=== PATIENT | male | born 1940 | race Caucasian/White ===

== ENCOUNTER 2016-12-05 11:54 | Emergency (ER) | payer OTHER ==
[2016-12-05 12:01] VITALS: BP 145/62; BMI 29.1
--- NOTE | 2016-12-05 12:58 | DR.GENAD ---
HPI - PCP Primary Care Physician: NFD - Complaint/Symptoms Chief Complaint:: PATIENT STATED THAT HAS BEEN RED AND DRAINING A COUPLE OF DAYS AGO AND HAS STOPPED AND NOW HIS PRIVATES ARE REALLY SWOLLEN 4-5 DAYS. - Nurses notes reviewed Nurses Notes Review: Yes - Source History Provided: Patient - Mode of Arrival Mode of Arrival: Ambulatory - Timing Onset of Chief Complaint: 11/30/16 PMH - PMH Past Medical History: Yes Past Medical History: Dyslipidemia, Hypertension, [place] Past Medical History Comment: COLON CA Past Surgical History: Yes Surgical History: Abdominal Surgery, Angioplasty/Stents, CABG/Valve Surgery Past Surgical History Comment: 3 FEET OF COLON REMOVED AND SMALL INTESTIONS REMOVED (30 IN. ) - Family History History of Family Medical Conditions: No - Social History Does patient currently use any type of tobacco product: No Have you used tobacco products in the last 12 months: No Type of Tobacco Use: None Does any household member use tobacco: No Alcohol Use: None Do you use any recreational Drugs:: No Lives With: Family Lives Where: Home - infectious screening In the last 2 months have you had wt loss of >10#?: NO Have you had fever, night sweats or hemotysis?: No Have you traveled outside the country in the last 6 months?: No Isolation: Standard PE - Vital Signs Vitals: Temperature 98.7 F Pulse Rate 57 Respiratory Rate 18 Blood Pressure 145/62 O2 Sat by Pulse Oximetry 100 ROR - Labs Reviewed Result Diagrams: 12/05/16 13:29 12/05/16 13:29 Laboratory: WBC 3.9 X10^3/uL (3.6-10.0) 12/05/16 13:29 RBC 3.96 X10^6/uL (4.7-6.0) L 12/05/16 13:29 Hgb 11.0 g/dL (13.5-18.0) L 12/05/16 13:29 Hct 33.0 % (42.0-54.0) L 12/05/16 13:29 MCV 83.3 fL (80.0-100.0) 12/05/16 13:29 MCH 27.8 pg (27.0-34.0) 12/05/16 13:29 MCHC 33.4 g/dL (33.0-35.0) 12/05/16 13:29 RDW 15.6 % (11.6-16.5) 12/05/16 13:29 Plt Count 83 X10^3/uL (150.0-450.0) L 12/05/16 13:29 MPV 8.2 fL (7.4-11.0) 12/05/16 13:29 Neut % 60.1 % (42.0-75.0) 12/05/16 13:29 Lymph % 23.4 % (21.0-51.0) 12/05/16 13:29 [place] % 12.7 % (0.0-13.0) 12/05/16 13:29 Eos % 3.0 % (0.9-2.9) H 12/05/16 13:29 Baso % 0.8 % (0.2-1.0) 12/05/16 13:29 Neut # 2.3 x10^3/uL (2.2-4.8) 12/05/16 13:29 Lymph # 0.9 X10^3/uL (1.3-2.9) L 12/05/16 13:29 [place] # 0.5 x10^3/uL (0.3-0.8) 12/05/16 13:29 Eos # 0.1 x10^3/uL (0.0-0.2) 12/05/16 13:29 Baso # 0.0 X10^3/uL (0.0-0.1) 12/05/16 13:29 Absolute Nucleated RBC 0.1 /100WBC 12/05/16 13:29 Sodium 141 mmol/L (136-145) 12/05/16 13:29 Corrected Sodium 141 mmol/L (136-145) 12/05/16 13:29 Potassium 4.3 mmol/L (3.5-5.1) 12/05/16 13:29 Chloride 106 mmol/L (98-107) 12/05/16 13:29 Carbon Dioxide 28.7 mmol/L (21-32) 12/05/16 13:29 BUN 5 mg/dL (7-18) L 12/05/16 13:29 Creatinine 0.82 mg/dL (0.70-1.30) 12/05/16 13:29 Est GFR (MDRD) Af Amer > 60 (>60) 12/05/16 13:29 Est GFR (MDRD) Non-Af > 60 (>60) 12/05/16 13:29 Glucose 111 mg/dL (65-99) H 12/05/16 13:29 Calcium 8.0 mg/dL (8.5-10.1) L 12/05/16 13:29 Corrected Calcium 8.9 mg/dL (8.5-10.1) 12/05/16 13:29 Total Bilirubin 0.90 mg/dL (0.2-1.0) 12/05/16 13:29 AST 25 Units/L (15-37) 12/05/16 13:29 ALT 22 Units/L (12-78) 12/05/16 13:29 Alkaline Phosphatase 79 Units/L (46-116) 12/05/16 13:29 Total Protein 6.6 g/dL (6.4-8.2) 12/05/16 13:29 Albumin 2.9 g/dL (3.4-5.0) L 12/05/16 13:29 Globulin 3.7 g/dL (2.5-4.5) 12/05/16 13:29 Albumin/Globulin Ratio 0.8 Ratio (1.1-2.1) L 12/05/16 13:29 Amylase 61 Units/L (25-115) 12/05/16 13:29 Lipase 176 Units/L (73-393) 12/05/16 13:29 Specimen Type Clean catch urine 12/05/16 14:20 Urine Color Yellow (YELLOW) 12/05/16 14:20 Urine Appearance Hazy (CLEAR) 12/05/16 14:20 Urine pH 6.5 (5.0 - 8.0) 12/05/16 14:20 Ur Specific [place] 1.005 (1.000-1.030) 12/05/16 14:20 Urine Protein Negative (NEGATIVE) 12/05/16 14:20 Urine Glucose (UA) Negative (NEGATIVE) 12/05/16 14:20 Urine Ketones Negative (NEGATIVE) 12/05/16 14:20 Urine Occult Blood Negative (NEGATIVE) 12/05/16 14:20 Urine Nitrite Negative (NEGATIVE) 12/05/16 14:20 Urine Bilirubin Negative (NEGATIVE) 12/05/16 14:20 Urine Urobilinogen Normal (NORMAL) 12/05/16 14:20 Ur Leukocyte Esterase 1+ (NEGATIVE) 12/05/16 14:20 Urine RBC 0-2 /HPF (NEGATIVE) 12/05/16 14:20 Urine WBC 0-3 /HPF (NEGATIVE) 12/05/16 14:20 Ur Squamous Epith Cells Rare /HPF (NEGATIVE) 12/05/16 14:20 Urine Bacteria Trace /HPF (NEGATIVE) 12/05/16 14:20 Ur Culture Indicated? No/not indicated 12/05/16 14:20 - Diagnosis Discharge Problem: Abdominal wall pain Cellulitis Qualifiers: Site of cellulitis: trunk Site of cellulitis of trunk: abdominal wall Qualified Code(s): L03.311 - Cellulitis of abdominal wall Hydrocele Qualifiers: Hydrocele type: other Qualified Code(s): N43.2 - Other hydrocele - Discharge Plan Condition: Stable Prescriptions: Sulfamethoxazole-Trimethoprim [BACTRIM DS TAB 800/160 MG *] 1 tab PO BID #20 tab - Follow ups/Referrals Follow ups/Referrals: NFD,None [Primary Care Provider] - 3 days Layo Lee [STAFF PHYSICIAN] - 3 days - Instructions Instructions: Hydrocele, Adult, Cellulitis, Abdominal Pain, Adult, [id number] Additional Instructions: RETURN TO ED IF WORSE.
[2016-12-05 13:42] LABS: BASOPHILS % (AUTO) 0.8 % (0.2-1.0); EOSINOPHILS # (AUTO) 0.1 x10^3/uL (0.0-0.2); LYMPHOCYTES # (AUTO) 0.9 X10^3/uL (1.3-2.9); LYMPHOCYTES % (AUTO) 23.4 % (21.0-51.0); MEAN CORPUSCULAR HEMOGLOBIN 27.8 pg (27.0-34.0); MEAN CORPUSCULAR HGB CONC 33.4 g/dL (33.0-35.0); MEAN CORPUSCULAR VOLUME 83.3 fL (80.0-100.0); MEAN PLATELET VOLUME 8.2 fL (7.4-11.0); MONOCYTES # (AUTO) 0.5 x10^3/uL (0.3-0.8); MONOCYTES % (AUTO) 12.7 % (0.0-13.0); NEUTROPHILS # (AUTO) 2.3 x10^3/uL (2.2-4.8); NEUTROPHILS % (AUTO) 60.1 % (42.0-75.0); PLATELET COUNT 83 X10^3/uL (150.0-450.0); RED BLOOD COUNT 3.96 X10^6/uL (4.7-6.0); RED CELL DISTRIBUTION WIDTH 15.6 % (11.6-16.5); WHITE BLOOD COUNT 3.9 X10^3/uL (3.6-10.0)
[2016-12-05 13:50] LABS: ALANINE AMINOTRANSFERASE 22 Units/L (12-78); ALBUMIN 2.9 g/dL (3.4-5.0); ALKALINE PHOSPHATASE 79 Units/L (46-116); AMYLASE 61 Units/L (25-115); ASPARTATE AMINO TRANSFERASE 25 Units/L (15-37); BLOOD UREA NITROGEN 5 mg/dL (7-18); CARBON DIOXIDE 28.7 mmol/L (21-32); CHLORIDE 106 mmol/L (98-107); COR CA(FOR HYPOALB) 8.9 mg/dL (8.5-10.1); COR NA(FOR HYPERGLY) 141 mmol/L (136-145); CREATININE 0.82 mg/dL (0.70-1.30); GLUCOSE 111 mg/dL (65-99); LIPASE 176 Units/L (73-393); SODIUM 141 mmol/L (136-145); TOTAL PROTEIN 6.6 g/dL (6.4-8.2); eGFR BLACK RACES > 60 (>60); eGFR NON BLACK RACES > 60 (>60)
[2016-12-05 14:31] LABS: BILIRUBIN,URINE NEGATIVE (NEGATIVE); BLOOD/HEMOGLOBIN,URINE NEGATIVE (NEGATIVE); GLUCOSE, URINE NEGATIVE (NEGATIVE); KETONES,URINE NEGATIVE (NEGATIVE); LEUKOCYTE ESTERASE ,URINE 1+ (NEGATIVE); NITRITES,URINE NEGATIVE (NEGATIVE); PH,URINE 6.5 (5.0 - 8.0); PROTEIN,URINE NEGATIVE (NEGATIVE); UROBILINOGEN,URINE NORMAL (NORMAL)
[2016-12-05 14:41] LABS: APPEARANCE,URINE HAZY (CLEAR); BACTERIA,URINE TRACE /HPF (NEGATIVE); COLOR,URINE YELLOW (YELLOW); RBC,URINE 0-2 /HPF (NEGATIVE); SQUAMOUS EPITHELIAL CELL,UR RARE /HPF (NEGATIVE)
--- NOTE | 2016-12-05 14:42 | US ---
HISTORY: Right-sided testicular pain Study: Scrotal ultrasound Comparison: No priors Technique: Multiple tellez scale and Doppler images of the right and left testicles were obtained Findings: The testicles demonstrate normal echotexture. No intra parenchymal mass or infiltrative process can be identified. Normal color flow Doppler is observed. The right testicle measures 2.4 x 2.9 x 3 ce ntimeters. The left testicle measures 2.8 x 2.9 x 3.5 centimeters. The epididymides are unremarkable without mass or cystic lesion. There are bilateral hydroceles, larger on the right side. IMPRESSION: No evidence of testicular tumor or torsion. Bilateral hydroceles, larger on the right side. Reported By:
--- NOTE | 2016-12-05 14:59 | CT ---
HISTORY: Abdominal wall swelling and pain. Right testicular swelling and pain. Study: CT abdomen and pelvis without contrast Comparison: Testicular ultrasound dated December 05, 2016. Technique: Multiple axial images of the abdomen and pelvis were obtained from the lung bases to the pubic symph ysis after/ without/ both prior to and after the administration of IV contrast. Dose reduction tech niques including Automated Exposure Control (AEC) and adjustment of mA and kV were utilized. Findings: Bibasilar scarring versus atelectasis . Otherwise, the visualized portions of the lung bases are unr emarkable. Cirrhotic appearing liver with associated perihepatic ascites. Ascites is also seen track ing down to the dependent pelvis and in the bilateral inguinal canals and scrotum. No obvious suspic ious liver mass. There is recanalization of the umbilical vein. The spleen is enlarged to 16.3 cm. D ependent gallstones are seen within the gallbladder without CT evidence to suggest cholecystitis. Th e pancreas, kidneys, and adrenal glands are unremarkable in their CT appearance. No pathologic lymp hadenopathy or free air is appreciated. Patient is status post subtotal colon resection and anastom osis. Remote right lower quadrant ostomy site is seen. No obvious bowel obstruction is appreciated. Small fat containing supraumbilical ventral hernia with hernia neck of 1.4 cm. Scattered colonic div erticulum of the remaining large bowel without evidence of diverticulosis. The bladder and prostate appear normal. Degenerative changes of the spine. The osseous structures otherwise appear normal for age. IMPRESSION: 1. No CT evidence of acute abdominal/pelvic pathology. 2. Constellation of findings likely representing cirrhosis of the liver. Patient's ascites tracks in to the bilateral inguinal canals and right greater than left scrotum. 3. Other chronic findings as above. Reported By:
== END 2016-12-05 15:41 | disposition home or self-care (01) ==
LOC: ER 11:54
DX: N43.2 Other hydrocele (principal); L03.311 Cellulitis of abdominal wall; R10.84 Generalized abdominal pain
CPT/HCPCS: 36415; 74176; 76870; 80053; 81001; 82150; 83690; 85025; 99283

== ENCOUNTER 2021-09-01 11:19 | Observation (INO) ==
[2021-09-01] MEDS ORDERED: ZOFRAN INJ 4 MG VIAL IVP PRN (15:47)
[2021-09-01] MEDS: NS 1,000 ML IV 1,000 ML IV SCH (16:16)
[2021-09-01] MEDS: PEPCID 20 MG VIAL 20 MG in NS 50 ML IV 50 ML IV SCH ×2 (16:16→20:22)
[2021-09-01] MEDS: CIPRO IV 400 MG PREMIX* 400 MG/200 ML IV.SOLN. IV SCH ×2 (16:16→21:00)
[2021-09-01] MEDS: BENTYL CAP 10 MG PO SCH ×2 (16:16→20:22)
[2021-09-01] MEDS: PROTONIX INJ 40 MG VIAL IVP SCH ×2 (16:16→20:22)
[2021-09-01 16:26] VITALS: BMI 29.5
[2021-09-01 16:28] LABS: BASOPHILS % (AUTO) 0.9 % (0.2-1.0); EOSINOPHILS # (AUTO) 0.1 x10^3/uL (0.0-0.2); EOSINOPHILS % (AUTO) 2.8 % (0.9-2.9); HEMATOCRIT 31.7 % (42.0-54.0); HEMOGLOBIN 10.2 g/dL (13.5-18.0); LYMPHOCYTES # (AUTO) 0.6 X10^3/uL (1.3-2.9); LYMPHOCYTES % (AUTO) 22.9 % (21.0-51.0); MEAN CORPUSCULAR HGB CONC 32.3 g/dL (33.0-35.0); MEAN CORPUSCULAR VOLUME 71.2 fL (80.0-100.0); MEAN PLATELET VOLUME 8.4 fL (7.4-11.0); MONOCYTES # (AUTO) 0.4 x10^3/uL (0.3-0.8); MONOCYTES % (AUTO) 14.1 % (0.0-13.0); NEUTROPHILS # (AUTO) 1.6 x10^3/uL (2.2-4.8); NEUTROPHILS % (AUTO) 59.3 % (42.0-75.0); RED BLOOD COUNT 4.45 X10^6/uL (4.7-6.0); RED CELL DISTRIBUTION WIDTH 25.7 % (11.6-16.5); WHITE BLOOD COUNT 2.6 X10^3/uL (3.6-10.0)
[2021-09-01 16:37] LABS: ALANINE AMINOTRANSFERASE 36 Units/L (12-78); ALBUMIN 2.6 g/dL (3.4-5.0); ALKALINE PHOSPHATASE 127 Units/L (46-116); AMYLASE 81 Units/L (25-115); ASPARTATE AMINO TRANSFERASE 46 Units/L (15-37); BLOOD UREA NITROGEN 8 mg/dL (7-18); CARBON DIOXIDE 24.9 mmol/L (21-32); CHLORIDE 105 mmol/L (98-107); COR CA(FOR HYPOALB) 7.1 mg/dL (8.5-10.1); CREATININE 0.78 mg/dL (0.70-1.30); LIPASE 181 Units/L (73-393); MAGNESIUM 0.5 mg/dL (1.7-2.9); SODIUM 138 mmol/L (136-145); TOTAL PROTEIN 6.5 g/dL (6.4-8.2); eGFR NON BLACK RACES > 60 (>60)
[2021-09-01 16:45] LABS: CKMB % 1.1 % (<4); CREATINE KINASE MB 2.7 ng/mL (0-4.0)
[2021-09-01] MEDS ORDERED: POTASSIUM CHLORIDE LIQ 20 MEQ UDC PO PRN (16:49)
[2021-09-01] MEDS ORDERED: K-DUR TAB 20 MEQ PO PRN (16:49)
[2021-09-01] MEDS ORDERED: POTASSIUM CHL 40 MEQ/NS 0.45% 500 ML IV PRN (16:49)
[2021-09-01] MEDS ORDERED: MICRO K EXTEN CAP 10 MEQ PO PRN (16:49)
[2021-09-01] MEDS ORDERED: POTASSIUM CHL 60 MEQ/NS 0.45% 500 ML IV PRN (16:49)
[2021-09-01] MEDS ORDERED: KLOR-CON PO PRN (16:49)
[2021-09-01 16:55] LABS: ANISOCYTOSIS 2+; PLATELET MORPHOLOGY COMMENT NORMAL (NORMAL)
[2021-09-01 16:56] LABS: MICROCYTOSIS SLIGHT
[2021-09-01 20:39] LABS: CRYPTOSPORIDIUM PARVUM ANTIGEN NEGATIVE (NEGATIVE); GIARDIA LAMBLIA ANTIGEN NEGATIVE (NEGATIVE)
[2021-09-01] MEDS: MAGNESIUM SULFATE 1 GRAM/100 mL PREMIX 1 G/100 ML BAG IV PRN ×2 (22:00→23:46)
[2021-09-01 22:34] LABS: BILIRUBIN,URINE NEGATIVE (NEGATIVE); BLOOD/HEMOGLOBIN,URINE 2+ (NEGATIVE); GLUCOSE, URINE NEGATIVE (NEGATIVE); KETONES,URINE NEGATIVE (NEGATIVE); LEUKOCYTE ESTERASE ,URINE NEGATIVE (NEGATIVE); NITRITES,URINE NEGATIVE (NEGATIVE); PROTEIN,URINE 1+ (NEGATIVE); UROBILINOGEN,URINE NORMAL (NORMAL)
[2021-09-01 22:52] LABS: APPEARANCE,URINE CLEAR (CLEAR); COLOR,URINE YELLOW (YELLOW)
[2021-09-01 22:53] LABS: BACTERIA,URINE TRACE /HPF (NEGATIVE); RBC,URINE 0-2 /HPF (0-3); SQUAMOUS EPITHELIAL CELL,UR NEGATIVE /HPF (NEGATIVE)
[2021-09-02] MEDS: K-RIDER 10 MEQ/NS 100 ML 10 MEQ/100 ML BAG IV PRN ×6 (00:48→06:29)
[2021-09-02] MEDS: MAGNESIUM SULFATE 1 GRAM/100 mL PREMIX 1 G/100 ML BAG IV PRN ×6 (00:48→06:29)
[2021-09-02] MEDS: NS 1,000 ML IV 1,000 ML IV SCH ×3 (05:08→18:14)
[2021-09-02 07:00] LABS: EOSINOPHILS # (AUTO) 0.1 x10^3/uL (0.0-0.2); EOSINOPHILS % (AUTO) 4.6 % (0.9-2.9); HEMATOCRIT 26.9 % (42.0-54.0); HEMOGLOBIN 8.7 g/dL (13.5-18.0); LYMPHOCYTES # (AUTO) 0.5 X10^3/uL (1.3-2.9); LYMPHOCYTES % (AUTO) 26.5 % (21.0-51.0); MEAN CORPUSCULAR HEMOGLOBIN 23.4 pg (27.0-34.0); MEAN CORPUSCULAR HGB CONC 32.4 g/dL (33.0-35.0); MEAN CORPUSCULAR VOLUME 72.1 fL (80.0-100.0); MEAN PLATELET VOLUME 8.4 fL (7.4-11.0); MONOCYTES # (AUTO) 0.3 x10^3/uL (0.3-0.8); MONOCYTES % (AUTO) 14.7 % (0.0-13.0); NEUTROPHILS # (AUTO) 1.1 x10^3/uL (2.2-4.8); NEUTROPHILS % (AUTO) 53.2 % (42.0-75.0); RED BLOOD COUNT 3.73 X10^6/uL (4.7-6.0); RED CELL DISTRIBUTION WIDTH 25.4 % (11.6-16.5)
[2021-09-02 07:17] LABS: ALANINE AMINOTRANSFERASE 29 Units/L (12-78); ALKALINE PHOSPHATASE 103 Units/L (46-116); ASPARTATE AMINO TRANSFERASE 39 Units/L (15-37); BLOOD UREA NITROGEN 6 mg/dL (7-18); CARBON DIOXIDE 25.2 mmol/L (21-32); CHLORIDE 106 mmol/L (98-107); COR CA(FOR HYPOALB) 7.5 mg/dL (8.5-10.1); CREATININE 0.56 mg/dL (0.70-1.30); MAGNESIUM 2.1 mg/dL (1.7-2.9); SODIUM 138 mmol/L (136-145); TOTAL PROTEIN 5.2 g/dL (6.4-8.2); eGFR NON BLACK RACES > 60 (>60)
[2021-09-02 07:29] LABS: CALCIUM 5.9 mg/dL (8.5-10.1)
[2021-09-02] MEDS ORDERED: LOMOTIL PO PRN (08:12)
[2021-09-02] MEDS ORDERED: ULTRAM PO PRN (08:12)
[2021-09-02 08:14] LABS: ANISOCYTOSIS 3+; MICROCYTOSIS SLIGHT; PLATELET MORPHOLOGY COMMENT NORMAL (NORMAL)
[2021-09-02] MEDS: CIPRO IV 400 MG PREMIX* 400 MG/200 ML IV.SOLN. IV SCH ×2 (09:56→21:40)
[2021-09-02] MEDS: LOPRESSOR TAB 25 MG PO SCH (09:57)
[2021-09-02] MEDS: BENTYL CAP 10 MG PO SCH ×4 (09:57→20:57)
[2021-09-02] MEDS: MAG-OX TAB PO SCH (09:57)
[2021-09-02] MEDS: PEPCID 20 MG VIAL 20 MG in NS 50 ML IV 50 ML IV SCH ×2 (09:57→20:58)
[2021-09-02] MEDS: ZESTRIL TAB 5 MG PO SCH (09:57)
[2021-09-02] MEDS: PROTONIX INJ 40 MG VIAL IVP SCH ×2 (09:58→20:59)
[2021-09-02] MEDS: ALBUMIN HUMAN 25%- 100 ML 100 ML IV SCH (09:58)
--- NOTE | 2021-09-02 10:41 | DR.H&P ---
H&P - History & Physical for Day of: H&P Date: 09/02/21 - Chief Complaint Chief Complaint: ABDOMINAL PAIN, DIARRHEA, LOWER EXTREMITY SWELLING - History of Present Illness History of Present Illness: IS A 81 YEAR OLD PATIENT OF OURS. HE WAS A DIRECT ADMISSION TO THE HOSPITAL DUE TO ABDOMINAL PAIN AND INTRACTABLE DIARRHEA. PATIENT REPORTS HAVING DIARRHEA FOR THE PAST MONTH. HE WAS POSITIVE FOR CAMPYLOBACTER ON 08/05/21. AT THAT TIME, HE RECEIVED A COURSE OF AZITHROMYCIN. AFTER NO IMPROVEMENT WITH AZITHROMYCIN, HE WAS TREATED WITH CIPRO. HE ALSO REPORTS TAKING ANTIDIARRHEALS AT HOME. PATIENT DENIES IMPROVEMENT IN DIARRHEA DESPITE COMPLIANCE WITH THE MEDICATIONS. HE DESCRIBES ABDOMINAL PAIN DULL, CRAMPING AT TIMES, AND INTERMITTENT. HE DENIES NAUSEA OR VOMITING. HE DOES ADMIT TO LOWER EXTREMITY SWELLING. EXAMINATION REVEALED 4+ PITTING EDEMA TO BILATERAL LOWER EXTREMITIES. HIS PMH INCLUDES CAD, GA, HTN, GERD, PAST COLON CANCER, CARDIAC STENTS, BYPASS X 4, AND BOWEL RESECTION. HE IS A DAILY DRINKER. ON ARRIVAL TO THE HOSPITAL, HIS VITALS WERE 97.9-83-18-100%-183/79. LABS WERE OBTAINED. ABNORMAL LAB VALUES INCLUDE THE FOLLOWING: WBC 2.6, RBC 4.45, HGB 10.2, HCT 31.7, PLT COUNT 71, POTASSIUM 2.8, CALCIUM 6.0, MAGNESIUM 0.5, AST 46, ALK PHOS 127, ALBUMIN 2.6. CARDIAC ENZYMES WERE WITHIN NORMAL LIMITS. URINALYSIS WAS OBTAINED AND IS UNREMARKABLE. STOOLS WERE POSITIVE FOR H-PYLORI, OTHERWISE UNREMARKABLE. COVID-19 NEGATIVE. STOOL CULTURE WAS SET UP. AN EKG WAS OBTAINED AND REVEALED: SINUS RHYTHM WITH HR 88. HE WAS STARTED ON NORMAL SALINE AT 80 ML/HR, CIPRO 400MG IV Q12H, PEPCID 20MG IV Q12H, PROTONIX 40MG IV BID, ALBUMIN 25% IV DAILY, ZOFRAN 4MG IV Q4H PRN, BENTYL 20MG PO QID, AND THE POTASSIUM AND MAGNESIUM PROTOCOLS. HIS HOME MEDICATIONS OF LIPITOR, LOMOTIL, ZESTRIL, MAG-OX, LOPRESSOR, AND ULTRAM WERE RESUMED. WE WILL OBTAIN AN ABDOMEN/PELVIS CT WITH AND WITHOUT CONTRAST. OTHERWISE, WE PLAN TO FOLLOW UP WITH AM LABS AND CONTINUE TO MONITOR. TIME SPENT ON CLINICAL ASSESSMENT, REVIEWING LABS AND IMAGING, DECISION MAKING, AND DOCUMENTATION GREATER THAN 75 MINUTES. - Past Medical History Past Medical History: Coronary Artery Disease, Dyslipidemia, GERD, Hypertension, GA - Past Surgical History Surgical History: Angioplasty/Stents, Bowel Resection Additional Surgical History: BYPASS X 5 - Social History Does any household member use tobacco: No Alcohol Use: DAILY - Medications Home Medications: No Known Drug Allergies Allergy (Verified 11/15/18 03:13) CONTINUE taking the following medications diphenoxylate-atropine 1 tab PO QID PRN 09/01/21 [History] furosemide 20 mg PO DAILY PRN 09/01/21 [History] magnesium oxide 400 mg PO DAILY 09/01/21 [History] omeprazole 40 mg PO DAILY 09/01/21 [History] potassium chloride 10 meq PO DAILY PRN 09/01/21 [History] potassium chloride 20 meq PO BID 09/01/21 [History] - Review of Systems Constitutional: Weakness Eyes: No Symptoms Reported ENT: No Symptoms Reported Respiratory: No Symptoms Reported Cardiovascular: No Symptoms Reported Gastrointestinal: See HPI, Abdominal Pain, Diarrhea Genitourinary: No Symptoms Reported Musculoskeletal: No Symptoms Reported Skin: No Symptoms Reported Neurological: Weakness - Physical Exam Vital Signs: Temperature 97.7 F Pulse Rate [Left Radial] 66 Respiratory Rate 20 Blood Pressure [Right Arm] 134/60 O2 Sat by Pulse Oximetry 98 Oriented: Normal Eyes: Normal Ear: Normal Nose: Normal Throat: Normal Respiratory: Diminished Throughout Cardiovascular: Edema (BLE 4+ PITTING ) : Normal Auscultation: Bowel Sounds: Increased Palpation: Normal Tenderness: Normal Skin: Decreased Turgur Musculoskeletal: Normal Psychiatric: Normal Mood Description: Calm Affect: Normal Speech Pattern: Clear - Assessment/Plan (1) Abdominal pain Qualifiers: Abdominal location: unspecified location Qualified Code(s): R10.9 - Unspecified abdominal pain Status: Acute Plan: ADMIT, IV FLUIDS, IV ANTIBIOTICS, NAUSEA AND PAIN CONTROL, ALBUMIN, POTASSIUM AND MAGNESIUM REPLACEMENT, CONTINUE HOME MEDS. OBTAIN ABDOMEN/PELVIS CT WITH AND WITHOUT CONTRAST (2) Intractable diarrhea Status: Acute (3) Hypokalemia Status: Acute (4) Hypomagnesemia Status: Acute (5) Hypoalbuminemia Status: Acute - Allergies Allergies/Adverse Reactions: Allergies Allergy/AdvReac Type Severity Reaction Status Date / Time No Known Drug Allergies Allergy Verified 11/15/18 03:13
[2021-09-02] MEDS: K-DUR TAB 20 MEQ PO SCH ×2 (11:11→20:58)
--- NOTE | 2021-09-02 16:13 | CT ---
HISTORYINTRACTABLE ABD PAINSTUDYABDOMEN/PELVIS WITH CONCOMPARISONJune 2016TECHNIQUEAxial CT images of the abdomen and pelvis were obtained after the administration of IV contrast, 100 mL Omnipaque 350, and reformatted into coronal and sagittal planes for further evaluation.Radiation dose: 761.50 mGy-cm total DLPFINDINGSTrace pleural effusions with adjacent atelectasis.Small fat containing supraumbilical left paracentral anterior abdominal wall hernia without inflammatory changes.Fluid containing left inguinal hernia.Stomach appears normal.Atrophic liver with a lobulated margin; consistent with cirrhosis. No focal liver lesion identified.Splenomegaly.Pancreas and adrenal glands are unremarkable.Numerous tiny calcified gallstones in the gallbladder with no overt imaging findings of acute cholecystitis.No intrahepatic or extrahepatic biliary dilatation.Atherosclerotic changes to the abdominal aorta and iliac vessels without aneurysm.Homogeneous enhancement of the kidneys without hydronephrosis or hydroureter.Unremarkable appearance of the urinary bladder.Imaged reproductive structures are unremarkable.Pancolonic wall thickening.Unremarkable appearance of the small bowel.Moderate diffuse ascites.No evidence of acute appendicitis.No pneumoperitoneum.No adenopathy.No acute osseous abnormality.IMPRESSION1. 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 Moderate effusion; associated with the patient's portal hypertension.3. Pancolonic wall thickening likely represents hepatic enteropathy; although infectious or inflammatory colitis could also be considered.4. Fluid containing left inguinal hernia.5. Cholelithiasis with no imaging findings of acute cholecystitis.Electronically signed by: Danny Coy (Sep 02, 2021 16:11:10)
[2021-09-02] MEDS ORDERED: LIPITOR TAB 10 MG PO SCH (21:00)
[2021-09-03] MEDS ORDERED: PHENOBARBITAL SODIUM INJ 65 MG VIAL IVP PRN (02:03)
[2021-09-03] MEDS: NS 1,000 ML IV 1,000 ML IV SCH (07:14)
[2021-09-03] MEDS: PEPCID 20 MG VIAL 20 MG in NS 50 ML IV 50 ML IV SCH (08:53)
[2021-09-03] MEDS: CIPRO IV 400 MG PREMIX* 400 MG/200 ML IV.SOLN. IV SCH (08:53)
[2021-09-03] MEDS: ALBUMIN HUMAN 25%- 100 ML 100 ML IV SCH (08:53)
[2021-09-03] MEDS: LOPRESSOR TAB 25 MG PO SCH (08:54)
[2021-09-03] MEDS: PROTONIX INJ 40 MG VIAL IVP SCH (08:54)
[2021-09-03] MEDS: MAG-OX TAB PO SCH (08:54)
[2021-09-03] MEDS: ZESTRIL TAB 5 MG PO SCH (08:54)
[2021-09-03] MEDS: K-DUR TAB 20 MEQ PO SCH (08:54)
[2021-09-03] MEDS: BENTYL CAP 10 MG PO SCH (08:54)
[2021-09-03 09:22] LABS: BASOPHILS % (AUTO) 1.1 % (0.2-1.0); EOSINOPHILS % (AUTO) 1.5 % (0.9-2.9); HEMATOCRIT 26.8 % (42.0-54.0); HEMOGLOBIN 8.8 g/dL (13.5-18.0); LYMPHOCYTES # (AUTO) 0.5 X10^3/uL (1.3-2.9); LYMPHOCYTES % (AUTO) 20.3 % (21.0-51.0); MEAN CORPUSCULAR HEMOGLOBIN 23.5 pg (27.0-34.0); MEAN CORPUSCULAR HGB CONC 32.7 g/dL (33.0-35.0); MEAN PLATELET VOLUME 8.6 fL (7.4-11.0); MONOCYTES # (AUTO) 0.3 x10^3/uL (0.3-0.8); MONOCYTES % (AUTO) 12.3 % (0.0-13.0); NEUTROPHILS # (AUTO) 1.7 x10^3/uL (2.2-4.8); NEUTROPHILS % (AUTO) 64.8 % (42.0-75.0); RED BLOOD COUNT 3.72 X10^6/uL (4.7-6.0); RED CELL DISTRIBUTION WIDTH 25.5 % (11.6-16.5); WHITE BLOOD COUNT 2.7 X10^3/uL (3.6-10.0)
[2021-09-03 09:34] LABS: ALANINE AMINOTRANSFERASE 32 Units/L (12-78); ALBUMIN 2.7 g/dL (3.4-5.0); ALKALINE PHOSPHATASE 119 Units/L (46-116); ASPARTATE AMINO TRANSFERASE 44 Units/L (15-37); BLOOD UREA NITROGEN 5 mg/dL (7-18); CALCIUM 6.5 mg/dL (8.5-10.1); CARBON DIOXIDE 24.9 mmol/L (21-32); CHLORIDE 105 mmol/L (98-107); COR CA(FOR HYPOALB) 7.5 mg/dL (8.5-10.1); CREATININE 0.74 mg/dL (0.70-1.30); MAGNESIUM 1.9 mg/dL (1.7-2.9); SODIUM 136 mmol/L (136-145); TOTAL PROTEIN 6.1 g/dL (6.4-8.2); eGFR NON BLACK RACES > 60 (>60)
[2021-09-03 09:49] LABS: ANISOCYTOSIS 3+; HYPOCHROMASIA 1+; MICROCYTOSIS SLIGHT; PLATELET MORPHOLOGY COMMENT NORMAL (NORMAL)
[2021-09-03] MEDS ORDERED: LIBRIUM PO ONE (11:38)
[2021-09-03 11:50] VITALS: BP 106/53
--- NOTE | 2021-09-03 18:18 | RAD ---
HISTORYeffusion, shortness of breath HX: CAD< DE< HTN>COLON Cancer.br.br.br.br.br VIEWCOMPARISONNoneFINDINGSThe cardiac silhouette is enlarged. Previous median sternotomy noted. There is mild interstitial prominence with Colin B-lines, suggestive of mild pulmonary edema. No focal infiltrate or significant effusion is identified. No pneumothorax.IMPRESSIONCardiomegaly and mild interstitial prominence with Colin B-lines, suggestive of mild pulmonary edema. Please correlate clinically for signs of CHF.Electronically signed by: JONATHAN REIS (Sep 03, 2021 18:16:35)
--- NOTE | 2021-10-18 10:53 | PCM.PROG ---
Progress Note - Progress Note for Day of Date of Exam: 09/02/21 - Subjective Subjective: IS CURRENTLY BEING TREATED FOR ABDOMINAL PAIN, INTRACTABLE DIARRHEA, HYPOKALEMIA, HYPOMAGNESEMIA, AND HYPOALBUMINEMIA. HE WAS TREATED FOR CAMPYLOBACTER ABOUT A MONTH AGO. TODAY, HE IS ALERT AND ORIENTED, LYING IN BED ON MORNING ROUNDS. HE CONTINUES WITH COMPALINTS OF ABDOMINAL CRAMPS AND DIARRHEA. HE DENIES SIGNIFICANT IMPROVEMENT SINCE ADMISSION. ON EXAMINATION, HEART IS REGULAR IN RATE AND RHYTHM. BILATERAL LUNGS ARE NOTED WITH DIMINISHED LUNG SOUNDS THROUGHOUT. ABDOMEN IS ROUND, SOFT, AND NOTED WITH DIFFUSE TENDERNESS. HYPERACTIVE BOWEL SOUNDS ARE NOTED IN ALL QUADRANTS. BILATERAL LOWER EXTREMITIES ARE NOTED WITH 2+ PITTING EDEMA. HIS VITALS THIS MORNING ARE: 97.9-75-18-98%-155/68. LABS WERE OBTAINED. ABNORMAL LAB VALUES INCLUDE THE FOLLOWING: WBC 2.0, RBC 3.73, HGB 8.7, HCT 26.9, PLT COUNT 54, POTASSIUM 3.0, BUN 6, CREATININE 0.56, CALCIUM 5.9, AST 39, TOTAL PROTEIN 5.2, ALBUMIN 2.0. A URINALYSIS WAS OBTAINED LAST NIGHT AND WAS UNREMARKABLE. STOOL STUDIES WERE ALSO COLLECTED. HE WAS POSITIVE FOR H.PYLORI. A STOOL CULTURE IS PENDING. HE IS CURRENTLY RECEIVING NORMAL SALINE AT 80 ML/HR, CIPRO 400MG IV Q12H, PEPCID 20MG IV Q12H, PROTONIX 40MG IV BID, ALBUMIN 25% IV DAILY, ZOFRAN 4MG IV Q4H PRN, BENTYL 20MG PO QID, AND THE POTASSIUM AND MAGNESIUM PROTOCOLS. HIS HOME MEDICATIONS OF LIPITOR, LOMOTIL, ZESTRIL, MAG-OX, LOPRESSOR, AND ULTRAM WERE RESUMED. WE WILL OBTAIN AN ABDOMEN/PELVIS CT WITH AND WITHOUT CONTRAST TODAY. WE WILL ADD ALBUMIN 25% IV DAILY. OTHERWISE, WE PLAN TO FOLLOW UP WITH AM LABS AND CONTINUE TO MONITOR. TIME SPENT ON CLINICAL ASSESSMENT, REVIEWING LABS AND IMAGING, DECISION MAKING, AND DOCUMENTATION GREATER THAN 45 MINUTES. - Past Medical Family Social History Past Med/Fam/Surg Hx: No changes since H&P Allergies: Allergies No Known Drug Allergies Allergy (Verified 11/15/18 03:13) - Review of Systems ROS: No change since H&P - Vital Signs and I&O's Vital Signs: Temperature 98.1 F Pulse Rate [Left Radial] 58 Respiratory Rate 20 Blood Pressure [Right Arm] 106/53 O2 Sat by Pulse Oximetry 98 - Physical Exam Oriented: Normal Eyes: Normal Ear: Normal Nose: Normal Throat: Normal Respiratory: Generalized, Diminished Cardiovascular: Edema (BLE 2+ PITTING ) : Normal Auscultation: Bowel Sounds: Increased Palpation: Normal Tenderness: Diffuse, Mild Skin: Decreased Turgur Musculoskeletal: Normal Psychiatric: Normal Mood Description: Calm Affect: Normal Speech Pattern: Clear, Appropriate - Laboratory and Diagnostics Result Diagrams: 09/03/21 09:13 09/03/21 09:13 Labs: 09/01/21 18:25 Stool Stool Culture - Final 09/01/21 18:25 Stool - Final Laboratory WBC 2.7 X10^3/uL (3.6-10.0) L 09/03/21 09:13 RBC 3.72 X10^6/uL (4.7-6.0) L 09/03/21 09:13 Hgb 8.8 g/dL (13.5-18.0) L 09/03/21 09:13 Hct 26.8 % (42.0-54.0) L 09/03/21 09:13 MCV 72.0 fL (80.0-100.0) L 09/03/21 09:13 MCH 23.5 pg (27.0-34.0) L 09/03/21 09:13 MCHC 32.7 g/dL (33.0-35.0) L 09/03/21 09:13 RDW 25.5 % (11.6-16.5) H 09/03/21 09:13 Plt Count 62 X10^3/uL (150.0-450.0) L 09/03/21 09:13 Plt Count Comment Decreased (ADEQUATE) 09/03/21 09:13 MPV 8.6 fL (7.4-11.0) 09/03/21 09:13 Neut % (Auto) 64.8 % (42.0-75.0) 09/03/21 09:13 Lymph % (Auto) 20.3 % (21.0-51.0) L 09/03/21 09:13 [place] % (Auto) 12.3 % (0.0-13.0) 09/03/21 09:13 Eos % (Auto) 1.5 % (0.9-2.9) 09/03/21 09:13 Baso % (Auto) 1.1 % (0.2-1.0) H 09/03/21 09:13 Neut # (Auto) 1.7 x10^3/uL (2.2-4.8) L 09/03/21 09:13 Lymph # (Auto) 0.5 X10^3/uL (1.3-2.9) L 09/03/21 09:13 [place] # (Auto) 0.3 x10^3/uL (0.3-0.8) 09/03/21 09:13 Eos # (Auto) 0.0 x10^3/uL (0.0-0.2) 09/03/21 09:13 Baso # (Auto) 0.0 X10^3/uL (0.0-0.1) 09/03/21 09:13 Absolute Nucleated RBC 0.0 /100WBC 09/03/21 09:13 Total Counted 25 09/02/21 05:55 Neutrophils % (Manual) 64 % (39-76) 09/02/21 05:55 Lymphocytes % (Manual) 28 % (13-43) 09/02/21 05:55 Monocytes % (Manual) 8 % (4-9) 09/02/21 05:55 Plt Morphology Comment Normal (NORMAL) 09/03/21 09:13 RBC Morphology Abnormal (NORMAL) 09/03/21 09:13 Hypochromasia 1+ A 09/03/21 09:13 Anisocytosis 3+ A 09/03/21 09:13 Microcytosis Slight A 09/03/21 09:13 Sodium 136 mmol/L (136-145) 09/03/21 09:13 Corrected Sodium TNP 09/03/21 09:13 Potassium 3.9 mmol/L (3.5-5.1) 09/03/21 09:13 Chloride 105 mmol/L (98-107) 09/03/21 09:13 Carbon Dioxide 24.9 mmol/L (21-32) 09/03/21 09:13 BUN 5 mg/dL (7-18) L 09/03/21 09:13 Creatinine 0.74 mg/dL (0.70-1.30) 09/03/21 09:13 Est GFR (MDRD) Af Amer > 60 (>60) 09/03/21 09:13 Est GFR (MDRD) Non-Af > 60 (>60) 09/03/21 09:13 Glucose 105 mg/dL (65-99) H 09/03/21 09:13 Calcium 6.5 mg/dL (8.5-10.1) L 09/03/21 09:13 Corrected Calcium 7.5 mg/dL (8.5-10.1) L 09/03/21 09:13 Magnesium 1.9 mg/dL (1.7-2.9) 09/03/21 09:13 Total Bilirubin 1.10 mg/dL (0.2-1.0) H 09/03/21 09:13 AST 44 Units/L (15-37) H 09/03/21 09:13 ALT 32 Units/L (12-78) 09/03/21 09:13 Alkaline Phosphatase 119 Units/L (46-116) H 09/03/21 09:13 Creatine Kinase 250 Units/L (39-308) 09/01/21 16:15 CK-MB (CK-2) 2.7 ng/mL (0-4.0) 09/01/21 16:15 CK/CKMB % Calc 1.1 % (<4) 09/01/21 16:15 Troponin I High Sens 50.7 ng/L (4.0-60.0) 09/01/21 16:15 Total Protein 6.1 g/dL (6.4-8.2) L 09/03/21 09:13 Albumin 2.7 g/dL (3.4-5.0) L 09/03/21 09:13 Globulin 3.4 g/dL (2.5-4.5) 09/03/21 09:13 Albumin/Globulin Ratio 0.8 Ratio (1.1-2.1) L 09/03/21 09:13 Amylase 81 Units/L (25-115) 09/01/21 16:15 Lipase 181 Units/L (73-393) 09/01/21 16:15 Specimen Type Clean catch urine 09/01/21 22:00 Urine Color Yellow (YELLOW) 09/01/21 22:00 Urine Appearance Clear (CLEAR) 09/01/21 22:00 Urine pH 5.0 (5.0 - 8.0) 09/01/21 22:00 Ur Specific [place] 1.020 (1.000-1.030) 09/01/21 22:00 Urine Protein 1+ (NEGATIVE) 09/01/21 22:00 Urine Glucose (UA) Negative (NEGATIVE) 09/01/21 22:00 Urine Ketones Negative (NEGATIVE) 09/01/21 22:00 Urine Occult Blood 2+ (NEGATIVE) 09/01/21 22:00 Urine Nitrite Negative (NEGATIVE) 09/01/21 22:00 Urine Bilirubin Negative (NEGATIVE) 09/01/21 22:00 Urine Urobilinogen Normal (NORMAL) 09/01/21 22:00 Ur Leukocyte Esterase Negative (NEGATIVE) 09/01/21 22:00 Urine RBC 0-2 /HPF (0-3) 09/01/21 22:00 Urine WBC None seen /HPF (0-5) 09/01/21 22:00 Ur Squamous Epith Cells Negative /HPF (NEGATIVE) 09/01/21 22:00 Urine Bacteria Trace /HPF (NEGATIVE) 09/01/21 22:00 Urine Mucus Moderate /HPF (NEGATIVE) 09/01/21 22:00 Ur Culture Indicated? No/not indicated 09/01/21 22:00 Stool Description Semi-solid brown 15g 09/01/21 18:25 Stool Description Semi-solid brown 15g 09/01/21 18:25 Stl Occult Blood (IFOB) Negative (NEGATIVE) 09/01/21 18:25 Stool for White Cells Negative (NEGATIVE) 09/01/21 18:25 Stl C. diff Tox B Gene Negative (NEGATIVE) 09/01/21 18:25 Stl C. diff [id number] Presumptive negative (NEGATIVE) 09/01/21 18:25 Stool H. pylori Ag Positive (NEGATIVE) A 09/01/21 18:25 Cryptosporid parvum Ag Negative (NEGATIVE) 09/01/21 18:25 Giardia lamblia Ag Negative (NEGATIVE) 09/01/21 18:25 SARS CoV-2 RNA Rapid JERRY Negative (NEGATIVE) 09/01/21 14:09 - Plan (1) Abdominal pain Status: Acute Qualifiers: Abdominal location: unspecified location Qualified Code(s): R10.9 - Unspecified abdominal pain Plan: IV FLUIDS, IV ANTIBIOTICS, ALBUMIN 25% IV DAILY, NAUSEA AND PAIN CONTROL, ALBUMIN, POTASSIUM AND MAGNESIUM REPLACEMENT, CONTINUE HOME MEDS. OBTAIN ABDOMEN/PELVIS CT WITH AND WITHOUT CONTRAST (2) Intractable diarrhea Status: Acute (3) Hypokalemia Status: Acute (4) Hypomagnesemia Status: Acute (5) Hypoalbuminemia Status: Acute (6) H. pylori infection Status: Acute
== END 2021-09-03 12:00 | disposition left against medical advice (07) ==
LOC: MED/SURG
PROVIDERS: ADMIT Internal Medicine; ATTEND Internal Medicine

== ENCOUNTER 2022-08-07 11:48 | Observation (INO) ==
[2022-08-07] MEDS ORDERED: XYLOCAINE 1 % (PLAIN) ONE (16:15)
[2022-08-07 16:48] LABS: BASOPHILS % (AUTO) 0.7 % (0.2-1.0); EOSINOPHILS # (AUTO) 0.1 x10^3/uL (0.0-0.2); EOSINOPHILS % (AUTO) 1.3 % (0.9-2.9); HEMATOCRIT 25.8 % (42.0-54.0); HEMOGLOBIN 8.8 g/dL (13.5-18.0); LYMPHOCYTES # (AUTO) 0.4 X10^3/uL (1.3-2.9); LYMPHOCYTES % (AUTO) 9.1 % (21.0-51.0); MEAN CORPUSCULAR HEMOGLOBIN 29.5 pg (27.0-34.0); MEAN CORPUSCULAR HGB CONC 34.3 g/dL (33.0-35.0); MEAN CORPUSCULAR VOLUME 86.2 fL (80.0-100.0); MEAN PLATELET VOLUME 7.2 fL (7.4-11.0); MONOCYTES # (AUTO) 0.5 x10^3/uL (0.3-0.8); MONOCYTES % (AUTO) 10.7 % (0.0-13.0); NEUTROPHILS # (AUTO) 3.7 x10^3/uL (2.2-4.8); NEUTROPHILS % (AUTO) 78.2 % (42.0-75.0); RED BLOOD COUNT 2.99 X10^6/uL (4.7-6.0); RED CELL DISTRIBUTION WIDTH 15.9 % (11.6-16.5); WHITE BLOOD COUNT 4.8 X10^3/uL (3.6-10.0)
[2022-08-07 16:56] LABS: ALANINE AMINOTRANSFERASE 40 Units/L (12-78); ALBUMIN 1.4 g/dL (3.4-5.0); ALKALINE PHOSPHATASE 217 Units/L (46-116); AMYLASE 41 Units/L (25-115); ASPARTATE AMINO TRANSFERASE 47 Units/L (15-37); BLOOD UREA NITROGEN 8 mg/dL (7-18); CALCIUM 7.3 mg/dL (8.5-10.1); CARBON DIOXIDE 30.9 mmol/L (21-32); CHLORIDE 101 mmol/L (98-107); COR CA(FOR HYPOALB) 9.4 mg/dL (8.5-10.1); COR NA(FOR HYPERGLY) 137 mmol/L (136-145); CREATININE 0.64 mg/dL (0.70-1.30); LIPASE 125 Units/L (73-393); SODIUM 136 mmol/L (136-145); TOTAL PROTEIN 5.7 g/dL (6.4-8.2); eGFR NON BLACK RACES > 60 (>60)
[2022-08-07 18:45] VITALS: BMI 32.1
[2022-08-07] MEDS: ANCEF VIAL 1 GRAM IVP SCH (20:42)
[2022-08-07] MEDS: PROTONIX INJ 40 MG VIAL IVP SCH (20:42)
[2022-08-07] MEDS: D5 1/2 NS 1,000 ML 1,000 ML IV SCH (20:51)
[2022-08-08] MEDS: ANCEF VIAL 1 GRAM IVP SCH (05:17)
[2022-08-08] MEDS: D5 1/2 NS 1,000 ML 1,000 ML IV SCH (05:17)
[2022-08-08 05:37] LABS: BASOPHILS % (AUTO) 1.1 % (0.2-1.0); EOSINOPHILS # (AUTO) 0.1 x10^3/uL (0.0-0.2); EOSINOPHILS % (AUTO) 2.3 % (0.9-2.9); HEMATOCRIT 27.7 % (42.0-54.0); HEMOGLOBIN 9.3 g/dL (13.5-18.0); LYMPHOCYTES # (AUTO) 0.5 X10^3/uL (1.3-2.9); LYMPHOCYTES % (AUTO) 13.4 % (21.0-51.0); MEAN CORPUSCULAR HEMOGLOBIN 28.6 pg (27.0-34.0); MEAN CORPUSCULAR HGB CONC 33.4 g/dL (33.0-35.0); MEAN CORPUSCULAR VOLUME 85.7 fL (80.0-100.0); MEAN PLATELET VOLUME 7.1 fL (7.4-11.0); MONOCYTES # (AUTO) 0.4 x10^3/uL (0.3-0.8); MONOCYTES % (AUTO) 10.4 % (0.0-13.0); NEUTROPHILS # (AUTO) 2.9 x10^3/uL (2.2-4.8); NEUTROPHILS % (AUTO) 72.8 % (42.0-75.0); RED BLOOD COUNT 3.23 X10^6/uL (4.7-6.0); RED CELL DISTRIBUTION WIDTH 16.2 % (11.6-16.5); WHITE BLOOD COUNT 3.9 X10^3/uL (3.6-10.0)
[2022-08-08 05:50] LABS: ALANINE AMINOTRANSFERASE 36 Units/L (12-78); ALBUMIN 1.3 g/dL (3.4-5.0); ALKALINE PHOSPHATASE 199 Units/L (46-116); ASPARTATE AMINO TRANSFERASE 39 Units/L (15-37); BLOOD UREA NITROGEN 8 mg/dL (7-18); CALCIUM 7.2 mg/dL (8.5-10.1); CARBON DIOXIDE 30.9 mmol/L (21-32); CHLORIDE 101 mmol/L (98-107); COR CA(FOR HYPOALB) 9.4 mg/dL (8.5-10.1); CREATININE 0.64 mg/dL (0.70-1.30); SODIUM 136 mmol/L (136-145); TOTAL PROTEIN 5.3 g/dL (6.4-8.2); eGFR NON BLACK RACES > 60 (>60)
[2022-08-08] MEDS ORDERED: POTASSIUM CHLORIDE LIQ 20 MEQ UDC PO PRN (07:29)
[2022-08-08] MEDS ORDERED: K-DUR TAB 20 MEQ PO PRN (07:29)
[2022-08-08] MEDS ORDERED: MICRO K EXTEN CAP 10 MEQ PO PRN (07:29)
[2022-08-08] MEDS ORDERED: KLOR-CON PO PRN (07:29)
[2022-08-08] MEDS ORDERED: K-RIDER 10 MEQ/NS 100 ML 10 MEQ/100 ML BAG IV PRN (07:29)
[2022-08-08] MEDS ORDERED: POTASSIUM CHL 60 MEQ/NS 0.45% 500 ML IV PRN (07:29)
[2022-08-08] MEDS ORDERED: POTASSIUM CHL 40 MEQ/NS 0.45% 500 ML IV PRN (07:29)
[2022-08-08] MEDS: PROTONIX INJ 40 MG VIAL IVP SCH (08:40)
[2022-08-08 13:34] VITALS: BP 159/72
== END 2022-08-08 14:47 | disposition home or self-care (01) ==
LOC: MED/SURG
PROVIDERS: ADMIT Surgery; ATTEND Surgery
DX: K21.9 Gastro-esophageal reflux disease without esophagitis; I10 Essential (primary) hypertension; Z86.73 Personal history of transient ischemic attack (TIA), and cerebral infarction without residual deficits; K70.31 Alcoholic cirrhosis of liver with ascites; R10.84 Generalized abdominal pain; E88.09 Other disorders of plasma-protein metabolism, not elsewhere classified; R06.02 Shortness of breath; I25.10 Atherosclerotic heart disease of native coronary artery without angina pectoris; D64.89 Other specified anemias; Z85.038 Personal history of other malignant neoplasm of large intestine; R60.0 Localized edema

== ENCOUNTER 2023-04-04 12:41 | Observation (INO) ==
--- NOTE | 2023-04-04 12:53 | DR.SOBA ---
HPI Time Seen Time Seen by Provider: 04/04/23 12:53 Complaints Chief Complaint Doctors Comments: 83 y/o male presents for evaluation. Has a h/o cirrhosis, ascites. Having increased swelling over the past 2 weeks. Swellin of his abdomen, bilateral legs. Having worsening weakness, has had nausea and v omiting, with decreased po intake. No report of fever. Coughing up slight phlegm. + worsening dyspnea, worse with exertion. Last paracentesis few months ago by Dr Jones. Reviewed Nurses Notes Reviewed: Yes Source History Provided: Patient and Family Member PMH PMH Past Medical History: Coronary Artery Disease, Dyslipidemia, GERD, Hypertension and ND Past Medical History Comment: cirrhosis, ascites Past Surgical History: Yes Surgical History: Bowel Resection and CABG/Valve Surgery Social History Does patient currently use any type of tobacco product: No Alcohol Use: None Do you use any recreational Drugs:: No ROS Review of Systems Constitutional: Weakness and Loss of Appetite Eyes: No Symptoms Reported ENTM: No Symptoms Reported Respiratoy: No Symptoms Reported Cardiovascular: Edema Gastrointestinal/Abdominal: Abdominal Pain, Nausea and Vomiting Genitourinary: No Symptoms Reported Neurological: Weakness Musculoskeletal: No Symptoms Reported Integumentary: No Symptoms Reported All Other Systems: Reviewed and Negative PE Vital Signs Vitals: Vital Signs Temperature 97.9 F Pulse Rate 104 Pulse Rate 97 Pulse Rate 102 Pulse Rate 96 Pulse Rate 96 Pulse Rate 106 Pulse Rate 100 Pulse Rate 98 Pulse Rate 100 Pulse Rate 108 Pulse Rate 107 Pulse Rate 98 Pulse Rate 105 Pulse Rate 106 Pulse Rate 104 Respiratory Rate 22 Blood Pressure 139/63 O2 Sat by Pulse Oximetry 98 O2 Sat by Pulse Oximetry 98 O2 Sat by Pulse Oximetry 97 O2 Sat by Pulse Oximetry 96 O2 Sat by Pulse Oximetry 97 O2 Sat by Pulse Oximetry 95 O2 Sat by Pulse Oximetry 98 O2 Sat by Pulse Oximetry 99 O2 Sat by Pulse Oximetry 98 O2 Sat by Pulse Oximetry 98 O2 Sat by Pulse Oximetry 99 O2 Sat by Pulse Oximetry 97 O2 Sat by Pulse Oximetry 97 O2 Sat by Pulse Oximetry 97 O2 Sat by Pulse Oximetry 100 General General Appearance: Alert and In No Apparent Distress Eyes Eye exam: PERRL and EOMI ENT ENT Exam: Normal Exam and Mucous Membranes Moist Respiratory Respiratory Exam: Normal Lung Sounds Bilat; negative Accessory Muscle Use or Respiratory Distress Cardiovascular Cardiovascular Exam: Regular Rate, Normal Rhythm and Normal Heart Sounds Abdominal Exam Abdominal Exam: Distention (with tense ascites.); negative Tenderness Extremities Extremities Exam: Edema (3+, bilateral lower exts.) Neurologic Neurological Exam: Alert, Oriented X3 and CN II-XII Intact; negative Motor Sensory Deficit Skin Skin Exam: Warm and Dry COURSE Treatment Treatment: 83 y/o male with h/o ascites, presents with worsening ascites over t he past 2 weeks. W/u initiated. Pt given IV lasix here. Potassium low at 2.8. Givne IV potassium. Will admit for paracentesis, consult put out to Dr Jones. Will admit to Dr Lee, discussed with him. ROR Labs Reviewed Laboratory Results Reviewed?: Yes 04/04/23 13:12 04/04/23 13:12 Laboratory: WBC 5.4 X10^3/uL (3.6-10.0) 04/04/23 13:12 RBC 3.24 X10^6/uL (4.7-6.0) L 04/04/23 13:12 Hgb 7.4 g/dL (13.5-18.0) L 04/04/23 13:12 Hct 24.1 % (42.0-54.0) L 04/04/23 13:12 MCV 74.5 fL (80.0-100.0) L 04/04/23 13:12 MCH 23.0 pg (27.0-34.0) L 04/04/23 13:12 MCHC 30.8 g/dL (33.0-35.0) L 04/04/23 13:12 RDW 21.8 % (11.6-16.5) H 04/04/23 13:12 Plt Count 123 X10^3/uL (150.0-450.0) L 04/04/23 13:12 Plt Count Comment Decreased (ADEQUATE) 04/04/23 13:12 MPV 7.0 fL (7.4-11.0) L 04/04/23 13:12 Neut % (Auto) 75.4 % (42.0-75.0) H 04/04/23 13:12 Lymph % (Auto) 12.8 % (21.0-51.0) L 04/04/23 13:12 [place] % (Auto) 10.8 % (0.0-13.0) 04/04/23 13:12 Eos % (Auto) 0.5 % (0.9-2.9) L 04/04/23 13:12 Baso % (Auto) 0.5 % (0.2-1.0) 04/04/23 13:12 Neut # (Auto) 4.1 x10^3/uL (2.2-4.8) 04/04/23 13:12 Lymph # (Auto) 0.7 X10^3/uL (1.3-2.9) L 04/04/23 13:12 [place] # (Auto) 0.6 x10^3/uL (0.3-0.8) 04/04/23 13:12 Eos # (Auto) 0.0 x10^3/uL (0.0-0.2) 04/04/23 13:12 Baso # (Auto) 0.0 X10^3/uL (0.0-0.1) 04/04/23 13:12 Absolute Nucleated RBC 0.1 /100WBC 04/04/23 13:12 Plt Morphology Comment Normal (NORMAL) 04/04/23 13:12 RBC Morphology Abnormal (NORMAL) 04/04/23 13:12 Hypochromasia 1+ A 04/04/23 13:12 Anisocytosis 1+ A 04/04/23 13:12 Microcytosis Slight A 04/04/23 13:12 Sodium 136 mmol/L (136-145) 04/04/23 13:12 Corrected Sodium 137 mmol/L (136-145) 04/04/23 13:12 Potassium 2.8 mmol/L (3.5-5.1) L* 04/04/23 13:12 Chloride 100 mmol/L (98-107) 04/04/23 13:12 Carbon Dioxide 27.8 mmol/L (21-32) 04/04/23 13:12 BUN 13 mg/dL (7-18) 04/04/23 13:12 Creatinine 0.94 mg/dL (0.70-1.30) 04/04/23 13:12 Est GFR (MDRD) Af Amer > 60 (>60) 04/04/23 13:12 Est GFR (MDRD) Non-Af > 60 (>60) 04/04/23 13:12 Glucose 129 mg/dL (65-99) H 04/04/23 13:12 Calcium 8.0 mg/dL (8.5-10.1) L 04/04/23 13:12 Corrected Calcium 9.8 mg/dL (8.5-10.1) 04/04/23 13:12 Total Bilirubin 2.40 mg/dL (0.2-1.0) H 04/04/23 13:12 AST 17 Units/L (15-37) 04/04/23 13:12 ALT 13 Units/L (12-78) 04/04/23 13:12 Alkaline Phosphatase 157 Units/L (46-116) H 04/04/23 13:12 Ammonia 22 umol/L (11-32) 04/04/23 13:12 Troponin I High Sens 20.7 ng/L (4.0-60.0) 04/04/23 13:12 B-Natriuretic Peptide 257 pg/mL (0-79) H 04/04/23 13:12 Total Protein 5.9 g/dL (6.4-8.2) L 04/04/23 13:12 Albumin 1.8 g/dL (3.4-5.0) L 04/04/23 13:12 Globulin 4.1 g/dL (2.5-4.5) 04/04/23 13:12 Albumin/Globulin Ratio 0.4 Ratio (1.1-2.1) L 04/04/23 13:12 XRAY XRAY Interpreted by: Self X-ray Results: + L pleural effusion EKG Rate: 107 [place]: Normal Rhythm: ST Block: RBBB ST: Nonsp Opioid Opioid Risk Tool Age (Zeus box if 16-45): No History of Preadolescent Sexual Abuse: No Total: 0 Total Score Risk Category: Low Risk Copyright: Shaun BIRD predicting aberrant behaviors Discharge Plan Diagnosis Discharge Problem: Tense ascites, Liver cirrhosis, Acute hypokalemia Discharge Plan Patient Disposition: 09 ADMITTED INPATIENT Condition: Stable Prescriptions: No Action tamsulosin 0.4 mg capsule 0.4 mg PO DAILY aspirin [Adult Low Dose Aspirin] 81 mg tablet,delayed release (DR/EC) 81 mg PO QDAY spironolactone 50 mg tablet 50 mg PO QDAY Qty: 90 3RF atorvastatin 10 mg tablet 10 mg PO HS lisinopril 2.5 mg tablet 2.5 mg PO DAILY metoprolol tartrate 25 mg tablet 12.5 mg PO DAILY potassium chloride 10 mEq capsule, extended release 10 meq PO DAILY PRN Rx Instructions: Take 1 by mouth when taking Lasix for swelling omeprazole 40 mg capsule,delayed release(DR/EC) 40 mg PO DAILY furosemide 20 mg tablet 40 mg PO BID PRN Rx Instructions: take as needed for swelling of legs/feet magnesium, potassium aspartate [Potassium, Magnesium Aspartat] 250-250 mg Capsule 1 cap PO DAILY cyanocobalamin (vitamin B-12) [[id number]] 1,000 mcg Tablet 1,000 mcg PO DAILY Health Concerns: Post Hospitalization: new medications and changes needed to prevent readmission or further decline. Pt educated and given instructions on all concerns. Plan of Treatment: Continue with present treatment and follow up plan. Pt is to keep follow up appointment as instructed and take medications as ordered. Orders to Discharge Patient Discharge Orders: Transfer (Routine); Ordered 04/04/23 Ordered By: Neo Murphy Follow ups/Referrals Follow ups/Referrals: Layo Lee [Primary Care Provider] - 3 days
--- NOTE | 2023-04-04 13:25 | EKG ---
Test Reason : shortness of breath Blood Pressure : */* mmHG Vent. Rate : 107 BPM Atrial Rate : 107 BPM P-R Int : 184 ms QRS Dur : 130 ms QT Int : 392 ms P-R-T Axes : 78 10 12 degrees QTc Int : 523 ms Sinus tachycardia with occasional premature ventricular complexes and pacs /short SVT Right bundle branch block Nonspecific T wave abnormality Abnormal ECG No previous ECGs available Confirmed by Aj Kwok MD ([id number]) on 04/04/2023 1:33:15 PM Referred By: Confirmed By: Aj Kwok MD
[2023-04-04 13:34] LABS: BASOPHILS % (AUTO) 0.5 % (0.2-1.0); EOSINOPHILS % (AUTO) 0.5 % (0.9-2.9); HEMATOCRIT 24.1 % (42.0-54.0); HEMOGLOBIN 7.4 g/dL (13.5-18.0); LYMPHOCYTES # (AUTO) 0.7 X10^3/uL (1.3-2.9); LYMPHOCYTES % (AUTO) 12.8 % (21.0-51.0); MEAN CORPUSCULAR HGB CONC 30.8 g/dL (33.0-35.0); MEAN CORPUSCULAR VOLUME 74.5 fL (80.0-100.0); MONOCYTES # (AUTO) 0.6 x10^3/uL (0.3-0.8); MONOCYTES % (AUTO) 10.8 % (0.0-13.0); NEUTROPHILS # (AUTO) 4.1 x10^3/uL (2.2-4.8); NEUTROPHILS % (AUTO) 75.4 % (42.0-75.0); PLATELET COUNT 123 X10^3/uL (150.0-450.0); RED BLOOD COUNT 3.24 X10^6/uL (4.7-6.0); RED CELL DISTRIBUTION WIDTH 21.8 % (11.6-16.5); WHITE BLOOD COUNT 5.4 X10^3/uL (3.6-10.0)
[2023-04-04 13:44] LABS: ALANINE AMINOTRANSFERASE 13 Units/L (12-78); ALBUMIN 1.8 g/dL (3.4-5.0); ALKALINE PHOSPHATASE 157 Units/L (46-116); ASPARTATE AMINO TRANSFERASE 17 Units/L (15-37); BLOOD UREA NITROGEN 13 mg/dL (7-18); CARBON DIOXIDE 27.8 mmol/L (21-32); CHLORIDE 100 mmol/L (98-107); COR CA(FOR HYPOALB) 9.8 mg/dL (8.5-10.1); COR NA(FOR HYPERGLY) 137 mmol/L (136-145); CREATININE 0.94 mg/dL (0.70-1.30); GLUCOSE 129 mg/dL (65-99); SODIUM 136 mmol/L (136-145); TOTAL PROTEIN 5.9 g/dL (6.4-8.2); eGFR NON BLACK RACES > 60 (>60)
[2023-04-04 13:58] LABS: POTASSIUM 2.8 mmol/L (3.5-5.1)
[2023-04-04 14:02] LABS: ANISOCYTOSIS 1+; HYPOCHROMASIA 1+; MICROCYTOSIS SLIGHT; PLATELET MORPHOLOGY COMMENT NORMAL (NORMAL)
[2023-04-04] MEDS ORDERED: NS + KCL 20 MEQ/L 1,000 ML IV ONE (14:37)
[2023-04-04] MEDS: NS + KCL 20 MEQ/L 1,000 ML IV SCH ×2 (14:42→15:52)
[2023-04-04] MEDS ORDERED: LASIX IVP ONE ×2 (15:30→15:37)
[2023-04-04] MEDS ORDERED: CONSULT PHARMACY - POTASSIUM & MAGNESIUM XX SCH (17:17)
[2023-04-04 17:24] VITALS: BMI 30.2
[2023-04-04] MEDS: LASIX IVP SCH (17:54)
[2023-04-04] MEDS: LIPITOR TAB 10 MG PO SCH (20:18)
[2023-04-04] MEDS: MAG-OX TAB PO SCH ×2 (20:18→21:15)
[2023-04-04] MEDS ORDERED: MAALOX or MYLANTA PO PRN (20:23)
[2023-04-04] MEDS ORDERED: TYLENOL 325 MG TAB PO PRN (20:23)
[2023-04-04] MEDS ORDERED: ZOFRAN INJ 4 MG VIAL IVP PRN (20:23)
[2023-04-04] MEDS ORDERED: KLOR-CON PO SCH (21:00)
[2023-04-04] MEDS ORDERED: K-DUR TAB 20 MEQ PO SCH (21:00)
--- NOTE | 2023-04-04 21:32 | RAD ---
EXAM:CHEST, 1 VIEWHISTORY:SHORT OF BREATH;COMPARISON:None available.TECHNIQUE:Frontal view of the chest.FINDINGS:The cardiomediastinal silhouette is normal.Streaky left lung base opacity and probable effusion. Osseous structures demonstrate no acute abnormality.IMPRESSION:1. Streaky left lung base opacity and probable effusion.THIS IS AN ELECTRONICALLY VERIFIED FINAL [id number]/04/2023 9:28 PM - Electronically signed by Osiel Packer MD
[2023-04-05] MEDS: NS + KCL 20 MEQ/L 1,000 ML IV SCH ×2 (01:49→03:54)
--- NOTE | 2023-04-05 05:35 | RAD ---
HISTORYABD PAIN, ASCITES, SOB Relevant Clinical InformationSTUDYACUTE ABDOMEN SERIESCOMPARISONNoneFINDINGSThe trachea is midline. The cardiac silhouette is [unremarkable]. [The lungs are clear without focal mass or consolidation. Changes of prior CABG surgery. There is blunting of the costophrenic angles bilaterally due to small effusions. [The bony thorax is unremarkable].Flat plate and upright evaluation of the abdomen demonstrates a [normal bowel gas pattern]. There is a moderate amount of fecal material throughout the colon. There is no pneumoperitoneum. No pathological soft tissue mass or calcification can be observed. The bony structures are grossly intact.IMPRESSION1. [Small bilateral pleural effusions.]2. [No evidence for acute abdominal pathology identified.]Electronically signed by: Forrest Aguero (Apr 05, 2023 05:34:47)
[2023-04-05 06:10] LABS: BASOPHILS % (AUTO) 0.6 % (0.2-1.0); EOSINOPHILS # (AUTO) 0.1 x10^3/uL (0.0-0.2); EOSINOPHILS % (AUTO) 1.3 % (0.9-2.9); HEMATOCRIT 24.9 % (42.0-54.0); HEMOGLOBIN 7.8 g/dL (13.5-18.0); LYMPHOCYTES # (AUTO) 0.8 X10^3/uL (1.3-2.9); LYMPHOCYTES % (AUTO) 13.8 % (21.0-51.0); MEAN CORPUSCULAR HEMOGLOBIN 23.3 pg (27.0-34.0); MEAN CORPUSCULAR HGB CONC 31.4 g/dL (33.0-35.0); MEAN CORPUSCULAR VOLUME 74.4 fL (80.0-100.0); MEAN PLATELET VOLUME 7.1 fL (7.4-11.0); MONOCYTES # (AUTO) 0.6 x10^3/uL (0.3-0.8); MONOCYTES % (AUTO) 11.5 % (0.0-13.0); NEUTROPHILS # (AUTO) 4.1 x10^3/uL (2.2-4.8); NEUTROPHILS % (AUTO) 72.8 % (42.0-75.0); PLATELET COUNT 118 X10^3/uL (150.0-450.0); RED BLOOD COUNT 3.35 X10^6/uL (4.7-6.0); RED CELL DISTRIBUTION WIDTH 21.6 % (11.6-16.5); WHITE BLOOD COUNT 5.6 X10^3/uL (3.6-10.0)
[2023-04-05 06:27] LABS: ALANINE AMINOTRANSFERASE 14 Units/L (12-78); ALBUMIN 1.9 g/dL (3.4-5.0); ALKALINE PHOSPHATASE 157 Units/L (46-116); ASPARTATE AMINO TRANSFERASE 22 Units/L (15-37); BLOOD UREA NITROGEN 14 mg/dL (7-18); CARBON DIOXIDE 26.9 mmol/L (21-32); CHLORIDE 103 mmol/L (98-107); COR CA(FOR HYPOALB) 9.7 mg/dL (8.5-10.1); CREATININE 0.92 mg/dL (0.70-1.30); GLUCOSE 109 mg/dL (65-99); MAGNESIUM 1.7 mg/dL (2.0-2.9); POTASSIUM 3.7 mmol/L (3.5-5.1); SODIUM 137 mmol/L (136-145); TOTAL PROTEIN 5.8 g/dL (6.4-8.2); eGFR NON BLACK RACES > 60 (>60)
[2023-04-05 06:41] LABS: HYPOCHROMASIA 1+; PLATELET MORPHOLOGY COMMENT NORMAL (NORMAL); POIKILOCYTOSIS 1+
[2023-04-05 06:42] LABS: ANISOCYTOSIS 1+; MICROCYTOSIS SLIGHT
[2023-04-05] MEDS ORDERED: CONSULT PHARMACY - POTASSIUM & MAGNESIUM XX SCH (07:00)
[2023-04-05] MEDS ORDERED: NS + KCL 20 MEQ/L 1,000 ML with MAGNESIUM SULFATE 50% INJ VIAL 1 G IV SCH ×2 (08:00)
[2023-04-05] MEDS ORDERED: ZESTRIL TAB 5 MG PO SCH (09:00)
[2023-04-05] MEDS ORDERED: [UNRECOGNIZED DRUG - OTHER] PO SCH (09:00)
[2023-04-05] MEDS: ALDACTONE TAB 25 MG PO SCH (09:25)
[2023-04-05] MEDS: PriLOSEC PO SCH (09:25)
[2023-04-05] MEDS: VITAMIN B-12 PO SCH (09:25)
[2023-04-05] MEDS: ASPIRIN EC 81 MG PO SCH (09:25)
[2023-04-05] MEDS: FLOMAX PO SCH (09:25)
[2023-04-05] MEDS: LASIX IVP SCH ×2 (09:25→18:17)
[2023-04-05] MEDS: LOPRESSOR TAB 25 MG PO SCH (09:26)
--- NOTE | 2023-04-05 11:51 | CT ---
EXAM:ABDOMEN/PELVIS W/O CONHISTORY:AscitesTECHNIQUE:Axial noncontrast images with coronal and sagittal reformats. Dose reduction procedures were used with mA/kv adjusted for body size.COMPARISON:09/02/2021FINDINGS:This examination is limited due to the lack of intravenous and oral contrast. The examination was performed in this manner at the sole discretion of the ordering caregiver.Bilateral moderate pleural effusions are present. The visualized lung bases are clear. Massive ascites is present. It is significantly increased when compared with the prior examination. The liver demonstrates a cirrhotic morphology. Spleen is enlarged. Portal hypertension is likely present. No focal space-occupying disease in the liver or spleen but only to the limitations of an unenhanced examination. Cholelithiasis is present. No evidence for cholecystitis. Kidneys are unobstructed and without stones. No ureteral calculi are identified. Appendix is not identified. There are no secondary signs of appendicitis present. Diffuse calcific atherosclerotic changes present throughout the nondilated abdominal aorta. No intraperitoneal or retroperitoneal lymphadenopathy is identified. Diffuse findings of anasarca are present predominantly in the subcutaneous tissues and in the mesenteric fat. Diffuse transmural thickening is present throughout the colon most likely related to the patient's chronic liver disease. There are no definite findings suggestive of enteritis, colitis, or diverticulitis. No pelvic masses, pelvic fluid, or pelvic lymphadenopathy is identified. No bladder abnormality is identified. There is a large fluid containing right inguinal hernia present. There is a small fat containing periumbilical ventral hernia present, uncomplicated no lytic or blastic skeletal lesions of significance are identified.IMPRESSION:Massive ascitesCirrhosis, splenomegaly, portal hypertensionCholelithiasis without evidence for cholecystitisFluid containing right inguinal herniaAnasarcaBilateral pleural effusionsTHIS IS AN ELECTRONICALLY VERIFIED FINAL [id number]/05/2023 11:48 AM - Electronically signed by Iglesia Carver MD
--- NOTE | 2023-04-05 12:50 | DR.H&P ---
H&P - History & Physical for Day of: H&P Date: 04/04/23 - Chief Complaint Chief Complaint: ABDOMINAL SWELLING, WEAKNESS, NAUSEA AND VOMITING, PRODUCTIVE COUGH, SHORTNESS OF BREATH - Past Medical History Past Medical History: [place], Coronary Artery Disease, Hypertension, Dyslipidemia, GERD - Past Surgical History Surgical History: Bowel Resection, CABG/Valve Surgery Additional Surgical History: BYPASS X 5 - Family History Family Medical History: Diabetes Mellitus, Hypertension - Social History Does patient currently use any type of tobacco product: No Have you used tobacco products in the last 12 months: No Type of Tobacco Use: None Does any household member use tobacco: No Alcohol Use: Rarely Drug Use: None - Review of Systems Constitutional: See HPI, Weakness. denies: Fever Eyes: No Symptoms Reported ENT: No Symptoms Reported Respiratory: Cough, Shortness of Breath, SOB with Excertion Cardiovascular: Edema (BLE 3+ PITTING EDEMA ) Gastrointestinal: Nausea, Vomiting. denies: Diarrhea Genitourinary: No Symptoms Reported Musculoskeletal: No Symptoms Reported Skin: No Symptoms Reported Neurological: Weakness - Physical Exam Vital Signs: Vital Signs Temperature 97.6 F Temperature 97.4 F Pulse Rate [Bilateral Radial] 72 Pulse Rate [Bilateral Radial] 95 Respiratory Rate 18 Respiratory Rate 20 Blood Pressure [Right Arm] 109/55 Blood Pressure [Right Arm] 134/63 O2 Sat by Pulse Oximetry 97 O2 Sat by Pulse Oximetry 95 Oriented: Normal Eyes: Normal Ear: Normal Nose: Normal Throat: Normal Respiratory: Diminished Throughout Cardiovascular: Tachycardia : Normal Auscultation: Bowel Sounds: Normal Palpation: Normal Tenderness: Other (DISTENTION, TENSE ASCITES ) Skin: Normal Musculoskeletal: Normal Psychiatric: Normal Mood Description: Calm Affect: Normal Speech Pattern: Clear - Assessment/Plan (1) Pneumonia Qualifiers: Pneumonia type: due to unspecified organism Laterality: left Lung location: lower lobe of lung Qualified Code(s): J18.9 - Pneumonia, unspecified organism Status: Acute Plan: ADMIT, NORMAL SALINE WITH POTASSIUM AND MAGNESIUM AT 80 ML/HR, LEVAQUIN 500MG IV DAILY, DUONEBS TID, LASIX 40MG IV BID, ZOFRAN 4MG IV Q6H PRN, TYLENOL 650MG PO Q6H PRN. RESUME HOME MEDS (2) Tense ascites Status: Acute Plan: CONSULT GENERAL SURGERY FOR POSSIBLE PARACENTESIS (3) Liver cirrhosis Qualifiers: Hepatic cirrhosis type: unspecified hepatic cirrhosis Ascites presence: w ith ascites Qualified Code(s): K74.60 - Unspecified cirrhosis of liver; R18.8 - Other ascites Status: Acute Plan: RESUME ALDACTONE (4) Hypokalemia Status: Acute Plan: POTASSIUM REPLACEMENT (5) Hypomagnesemia Status: Acute Plan: MAG REPLACEMENT (6) Generalized weakness Status: Acute (7) GERD (gastroesophageal reflux disease) Qualifiers: Esophagitis presence: esophagitis presence not specified Qualified Code(s): K21.9 - Gastro-esophageal reflux disease without esophagitis Status: Chronic Plan: RESUME OMEPRAZOLE (8) CAD (coronary artery disease) Qualifiers: Coronary Disease-Associated Artery/Lesion type: bypass graft [place] vs. transplanted heart: [place] heart Associated angina: unspecified whether angina present Qualified Code(s): I25.810 - Atherosclerosis of coronary artery bypass graft(s) without angina pectoris Status: Chronic Plan: RESUME ECOTRIN (9) Hypertension Qualifiers: Hypertension type: primary hypertension Qualified Code(s): I10 - Essential (primary) hypertension Status: Chronic Plan: RESUME METOPROLOL AND LISINOPRIL (10) Hyperlipidemia Qualifiers: Hyperlipidemia type: mixed hyperlipidemia Qualified Code(s): E78.2 - Mixed hyperlipidemia Status: Chronic Plan: RESUME ATORVASTATIN - Allergies Allergies/Adverse Reactions: Allergies Allergy/AdvReac Type Severity Reaction Status Date / Time No Known Drug Allergies Allergy Verified 10/19/22 09:11 - Medications Home Medications: Home Medications Medication Instructions Recorded Confirmed atorvastatin 10 mg tablet 10 mg PO HS 11/15/18 04/04/23 lisinopril 2.5 mg tablet 2.5 mg PO DAILY 11/15/18 04/04/23 metoprolol tartrate 25 mg tablet 12.5 mg PO DAILY 11/15/18 04/04/23 omeprazole 40 mg capsule,delayed 40 mg PO DAILY 09/01/21 04/04/23 release potassium chloride 10 mEq 10 meq PO DAILY PRN 09/01/21 04/04/23 capsule,extended release aspirin 81 mg tablet,delayed 81 mg PO QDAY 08/03/22 04/04/23 release (Adult Low Dose Aspirin) furosemide 20 mg tablet 40 mg PO BID PRN 08/03/22 04/04/23 tamsulosin 0.4 mg capsule 0.4 mg PO DAILY 08/03/22 04/04/23 cyanocobalamin (vitamin B-12) 1,000 mcg PO DAILY 08/07/22 04/04/23 1,000 mcg tablet magnesium aspartate-potassium 1 cap PO DAILY 04/04/23 04/04/23 aspartate 250 mg-250 mg capsule Previous Rx's Medication Instructions Recorded spironolactone 50 mg tablet 50 mg PO QDAY #90 tabs 10/19/22
[2023-04-05] MEDS: LEVAQUIN PREMIX IV 500 MG 500 MG/100 ML BAG IV SCH (13:04)
[2023-04-05] MEDS: DUONEB 0.5 MG/3 MG (3 mL) NEB SCH ×2 (13:10→21:30)
[2023-04-05] MEDS ORDERED: NS 1,000 ML IV 500 ML IV ONE (16:39)
[2023-04-05] MEDS ORDERED: ALBUMIN HUMAN 25%- 100 ML 100 ML IV ONE (16:39)
[2023-04-05] MEDS: NS 1,000 ML IV 1,000 ML with MAGNESIUM SULFATE 50% INJ VIAL 1 G IV SCH ×2 (16:50)
[2023-04-05] MEDS ORDERED: NS 500 ML IV 500 ML IV ONE (17:01)
[2023-04-05] MEDS: LIPITOR TAB 10 MG PO SCH (20:29)
[2023-04-06] MEDS: NS 1,000 ML IV 1,000 ML with MAGNESIUM SULFATE 50% INJ VIAL 1 G IV SCH ×4 (05:20→16:18)
[2023-04-06] MEDS: DUONEB 0.5 MG/3 MG (3 mL) NEB SCH ×3 (05:30→21:10)
[2023-04-06] MEDS: FLOMAX PO SCH (08:32)
[2023-04-06] MEDS: LEVAQUIN PREMIX IV 500 MG 500 MG/100 ML BAG IV SCH (08:33)
[2023-04-06] MEDS: LOPRESSOR TAB 25 MG PO SCH (08:33)
[2023-04-06] MEDS: VITAMIN B-12 PO SCH (08:33)
[2023-04-06] MEDS: ASPIRIN EC 81 MG PO SCH (08:33)
[2023-04-06] MEDS: PriLOSEC PO SCH (08:33)
[2023-04-06 08:48] LABS: LYMPHOCYTES # (AUTO) 0.5 X10^3/uL (1.3-2.9); MEAN CORPUSCULAR HEMOGLOBIN 23.1 pg (27.0-34.0); MONOCYTES # (AUTO) 0.4 x10^3/uL (0.3-0.8); NEUTROPHILS # (AUTO) 2.5 x10^3/uL (2.2-4.8); RED BLOOD COUNT 2.68 X10^6/uL (4.7-6.0)
[2023-04-06 08:53] LABS: BASOPHILS % (AUTO) 0.4 % (0.2-1.0); EOSINOPHILS % (AUTO) 1.4 % (0.9-2.9); HEMATOCRIT 20.1 % (42.0-54.0); LYMPHOCYTES % (AUTO) 13.9 % (21.0-51.0); MEAN CORPUSCULAR HGB CONC 30.9 g/dL (33.0-35.0); MEAN CORPUSCULAR VOLUME 74.9 fL (80.0-100.0); MONOCYTES % (AUTO) 12.5 % (0.0-13.0); NEUTROPHILS % (AUTO) 71.8 % (42.0-75.0); PLATELET COUNT 73 X10^3/uL (150.0-450.0); RED CELL DISTRIBUTION WIDTH 22.3 % (11.6-16.5); WHITE BLOOD COUNT 3.4 X10^3/uL (3.6-10.0)
[2023-04-06 09:03] LABS: ALANINE AMINOTRANSFERASE 11 Units/L (12-78); ALBUMIN 1.9 g/dL (3.4-5.0); ALKALINE PHOSPHATASE 114 Units/L (46-116); ASPARTATE AMINO TRANSFERASE 18 Units/L (15-37); BLOOD UREA NITROGEN 19 mg/dL (7-18); CALCIUM 7.5 mg/dL (8.5-10.1); CARBON DIOXIDE 24.8 mmol/L (21-32); CHLORIDE 105 mmol/L (98-107); COR CA(FOR HYPOALB) 9.2 mg/dL (8.5-10.1); GLUCOSE 110 mg/dL (65-99); HEMOGLOBIN 6.2 g/dL (13.5-18.0); POTASSIUM 3.4 mmol/L (3.5-5.1); SODIUM 139 mmol/L (136-145); eGFR NON BLACK RACES > 60 (>60)
[2023-04-06 09:36] LABS: ANISOCYTOSIS 2+; HYPOCHROMASIA 1+; MICROCYTOSIS SLIGHT; PLATELET MORPHOLOGY COMMENT NORMAL (NORMAL); POIKILOCYTOSIS 1+
[2023-04-06] MEDS: LASIX IVP SCH ×2 (11:00→17:36)
[2023-04-06] MEDS: ALDACTONE TAB 25 MG PO SCH (11:00)
--- NOTE | 2023-04-06 11:26 | PCM.PROG ---
Progress Note - Progress Note for Day of Date of Exam: 04/06/23 - Subjective Subjective: IS CURRENTLY BEING TREATED FOR LEFT LOWER LOBE PNEUMONIA, TENSE ASCITES, LIVER CIRRHOSIS, HYPOKALEMIA, HYPOMAGNESEMIA, AND GENERALIZED WEAKNESS. HE WAS CHANGED TO INPATIENT STATUS TODAY. HE HAS A PMH INCLUDES: CAD, DYSLIPIDEMIA, GERD, HTN, [place], CIRRHOSIS, BOWEL RESECTION, CABG. ATTEMPTED A PARACENTESIS YESTERDAY, BUT WAS UNABLE TO DRAIN OFF MUCH FLUID AT ALL. TODAY, PATIENT IS ALERT AND ORIENTED, LYING IN BED ON MORNING ROUNDS. HE CONTINUES TO COMPLAIN OF GENERALIZED WEAKNESS AND GENERALIZED SWELLING. HE HAD AN UNEVENTFUL NIGHT. ON EXAMINATION, HEART IS REGULAR IN RATE AND RHYTHM. BILATERAL LUNGS ARE NOTED WITH DIMINISHED LUNG SOUNDS THROUGHOUT. ABDOMEN IS SEVERELY DISTENDED. HYPOACTIVE BOWEL SOUNDS ARE NOTED IN ALL QUADRANTS. BILATERAL LOWER EXTREMITIES ARE NOTED WITH 2+ PITTING EDEMA. GOOD RANGE OF MOTION NOTED. HIS VITALS THIS MORNING WERE: 98.4-93-18-99%-109/59. LABS WERE OBTAINED. WBC 3.4, RBC 2.68, HGB 6.2, HCT 20.1, PLT COUNT 73, SODIUM 139, POTASSIUM 3.8, CHLORIDE 105, BUN 19, CREATININE 1.20, GLUCOSE 110, CALCIUM 7.5, TOTAL BILI 1.50, AST 18, ALT 11, ALK PHOS 114, TOTAL PROTEIN 5.0, ALBUMIN 1.9. AN ABDOMEN/PELVIS CT WITH CONTRAST WAS OBTAINED YESTERDAY AND REVEALED: Massive ascites. Cirrhosis, splenomegaly, portal hypertension. Cholelithiasis without evidence for cholecystitis. Fluid containing right inguinal hernia. Anasarca. Bilateral pleural effusions. HE IS CURRENTLY RECEIVING NORMAL SALINE WITH POTASSIUM AND MAGNESIUM AT 80 ML/HR, LEVAQUIN 500MG IV DAILY, DUONEBS TID, LASIX 40MG IV BID, ZOFRAN 4MG IV Q6H PRN, TYLENOL 650MG PO Q6H PRN. HIS HOME MEDICATIONS OF ECOTRIN, ATORVASTATIN, VITAMIN B12, METOPROLOL, LISINOPRIL, TAMSULOSIN, ALDACTONE, OMEPRAZOLE WERE RESUMED. TODAY, WE WILL ADD ALBUMIN 25% IV DAILY. WE WILL ORDER AND TRANSFUSE TWO UNITS OF PACKED RED BLOOD CELLS. WILL REVIEW THE CT RESULTS AND MAKE FURTHER DECISIONS REGARDING THAT. OTHERWISE, WE PLAN TO FOLLOW UP WITH AM LABS AND CONTINUE TO MONITOR. TIME SPENT ON CLINICAL ASSESSMENT, REVIEWING LABS AND IMAGING, DECISION MAKING, AND DOCUMENTATION GREATER THAN 45 MINUTES. - Past Medical Family Social History Past Med/Fam/Surg Hx: No changes since H&P Allergies: Allergies No Known Drug Allergies Allergy (Verified 10/19/22 09:11) - Review of Systems ROS: No change since H&P - Vital Signs and I&O's Vital Signs: Vital Signs Temperature 98.4 F Temperature 97.7 F Pulse Rate [Bilateral Radial] 93 Pulse Rate [Bilateral Radial] 85 Pulse Rate 108 Respiratory Rate 18 Respiratory Rate 20 Blood Pressure [Right Arm] 109/59 Blood Pressure [Right Arm] 96/55 O2 Sat by Pulse Oximetry 99 O2 Sat by Pulse Oximetry 89 O2 Sat by Pulse Oximetry 96 Intake and Output: Intake & Output 04/03/23 04/04/23 04/05/23 04/06/23 11:59 11:59 11:59 11:59 Intake Total 1693 / 1693 3634 / 3634 Output Total 1275 / 1275 1200 / 1200 Balance 418 / 418 2434 / 2434 - Physical Exam Oriented: Normal Eyes: Normal Ear: Normal Nose: Normal Throat: Normal Cardiovascular: Edema (BLE 2+ PITTING EDEMA ) : Normal Auscultation: Bowel Sounds: Normal Palpation: Normal Tenderness: Other (DISTENTION, TENSE ASCITES ) Skin: Normal Musculoskeletal: Normal Psychiatric: Normal Mood Description: Calm Affect: Normal Speech Pattern: Clear, Appropriate - Laboratory and Diagnostics Result Diagrams: 04/06/23 08:20 04/06/23 08:20 Labs: Laboratory WBC 3.4 X10^3/uL (3.6-10.0) L 04/06/23 08:20 RBC 2.68 X10^6/uL (4.7-6.0) L 04/06/23 08:20 Hgb 6.2 g/dL (13.5-18.0) L* 04/06/23 08:20 Hct 20.1 % (42.0-54.0) L 04/06/23 08:20 MCV 74.9 fL (80.0-100.0) L 04/06/23 08:20 MCH 23.1 pg (27.0-34.0) L 04/06/23 08:20 MCHC 30.9 g/dL (33.0-35.0) L 04/06/23 08:20 RDW 22.3 % (11.6-16.5) H 04/06/23 08:20 Plt Count 73 X10^3/uL (150.0-450.0) L 04/06/23 08:20 Plt Count Comment Decreased (ADEQUATE) 04/06/23 08:20 MPV 8.0 fL (7.4-11.0) 04/06/23 08:20 Neut % (Auto) 71.8 % (42.0-75.0) 04/06/23 08:20 Lymph % (Auto) 13.9 % (21.0-51.0) L 04/06/23 08:20 [place] % (Auto) 12.5 % (0.0-13.0) 04/06/23 08:20 Eos % (Auto) 1.4 % (0.9-2.9) 04/06/23 08:20 Baso % (Auto) 0.4 % (0.2-1.0) 04/06/23 08:20 Neut # (Auto) 2.5 x10^3/uL (2.2-4.8) 04/06/23 08:20 Lymph # (Auto) 0.5 X10^3/uL (1.3-2.9) L 04/06/23 08:20 [place] # (Auto) 0.4 x10^3/uL (0.3-0.8) 04/06/23 08:20 Eos # (Auto) 0.0 x10^3/uL (0.0-0.2) 04/06/23 08:20 Baso # (Auto) 0.0 X10^3/uL (0.0-0.1) 04/06/23 08:20 Absolute Nucleated RBC 0.1 /100WBC 04/06/23 08:20 Plt Morphology Comment Normal (NORMAL) 04/06/23 08:20 RBC Morphology Abnormal (NORMAL) 04/06/23 08:20 Hypochromasia 1+ A 04/06/23 08:20 Poikilocytosis 1+ A 04/06/23 08:20 Anisocytosis 2+ A 04/06/23 08:20 Microcytosis Slight A 04/06/23 08:20 Sodium 139 mmol/L (136-145) 04/06/23 08:20 Corrected Sodium TNP 04/06/23 08:20 Potassium 3.4 mmol/L (3.5-5.1) L 04/06/23 08:20 Chloride 105 mmol/L (98-107) 04/06/23 08:20 Carbon Dioxide 24.8 mmol/L (21-32) 04/06/23 08:20 BUN 19 mg/dL (7-18) H 04/06/23 08:20 Creatinine 1.20 mg/dL (0.70-1.30) 04/06/23 08:20 Est GFR (MDRD) Af Amer > 60 (>60) 04/06/23 08:20 Est GFR (MDRD) Non-Af > 60 (>60) 04/06/23 08:20 Glucose 110 mg/dL (65-99) H 04/06/23 08:20 POC Glucose (mg/dL) 88 mg/dL (65-99) 04/06/23 11:03 Calcium 7.5 mg/dL (8.5-10.1) L 04/06/23 08:20 Corrected Calcium 9.2 mg/dL (8.5-10.1) 04/06/23 08:20 Magnesium 2.0 mg/dL (2.0-2.9) 04/06/23 08:20 Total Bilirubin 1.50 mg/dL (0.2-1.0) H 04/06/23 08:20 AST 18 Units/L (15-37) 04/06/23 08:20 ALT 11 Units/L (12-78) L 04/06/23 08:20 Alkaline Phosphatase 114 Units/L (46-116) 04/06/23 08:20 Ammonia 22 umol/L (11-32) 04/04/23 13:12 Troponin I High Sens 20.7 ng/L (4.0-60.0) 04/04/23 13:12 B-Natriuretic Peptide 257 pg/mL (0-79) H 04/04/23 13:12 Total Protein 5.0 g/dL (6.4-8.2) L 04/06/23 08:20 Albumin 1.9 g/dL (3.4-5.0) L 04/06/23 08:20 Globulin 3.1 g/dL (2.5-4.5) 04/06/23 08:20 Albumin/Globulin Ratio 0.6 Ratio (1.1-2.1) L 04/06/23 08:20 Blood Type O POSITIVE 04/06/23 10:10 Crossmatch See Detail 04/06/23 10:10 - Plan (1) Pneumonia Status: Acute Qualifiers: Pneumonia type: due to unspecified organism Laterality: left Lung location: lower lobe of lung Qualified Code(s): J18.9 - Pneumonia, unspecified organism Plan: ADMIT, NORMAL SALINE WITH POTASSIUM AND MAGNESIUM AT 80 ML/HR, LEVAQUIN 500MG IV DAILY, DUONEBS TID, LASIX 40MG IV BID, ZOFRAN 4MG IV Q6H PRN, TYLENOL 650MG PO Q6H PRN. RESUME HOME MEDS (2) Anemia Status: Acute Qualifiers: Anemia type: unspecified type Qualified Code(s): D64.9 - Anemia, unspecified Plan: TRANSFUSE TWO UNITS PRBC, MONITOR H&H (3) Tense ascites Status: Acute Plan: CONSULT GENERAL SURGERY FOR POSSIBLE PARACENTESIS (4) Liver cirrhosis Status: Acute Qualifiers: Hepatic cirrhosis type: unspecified hepatic cirrhosis Ascites presence: with ascites Qualified Code(s): K74.60 - Unspecified cirrhosis of liver; R18.8 - Other ascites Plan: RESUME ALDACTONE (5) Hypokalemia Status: Acute Plan: POTASSIUM REPLACEMENT (6) Hypomagnesemia Status: Acute Plan: MAG REPLACEMENT (7) Generalized weakness Status: Acute (8) GERD (gastroesophageal reflux disease) Status: Chronic Qualifiers: Esophagitis presence: esophagitis presence not specified Qualified Code(s): K21.9 - Gastro-esophageal reflux disease without esophagitis Plan: RESUME OMEPRAZOLE (9) CAD (coronary artery disease) Status: Chronic Qualifiers: Coronary Disease-Associated Artery/Lesion type: bypass graft [place] vs. transplanted heart: [place] heart Associated angina: unspecified whether angina present Qualified Code(s): I25.810 - Atherosclerosis of coronary artery bypass graft(s) without angina pectoris Plan: RESUME ECOTRIN (10) Hypertension Status: Chronic Qualifiers: Hypertension type: primary hypertension Qualified Code(s): I10 - Essential (primary) hypertension Plan: RESUME METOPROLOL AND LISINOPRIL (11) Hyperlipidemia Status: Chronic Qualifiers: Hyperlipidemia type: mixed hyperlipidemia Qualified Code(s): E78.2 - Mixed hyperlipidemia Plan: RESUME ATORVASTATIN
[2023-04-06] MEDS: ALBUMIN HUMAN 25%- 100 ML 100 ML IV SCH (11:27)
[2023-04-06] MEDS ORDERED: NS 500 ML IV 500 ML IV ONE ×2 (12:11→17:57)
[2023-04-06] MEDS: LIPITOR TAB 10 MG PO SCH (20:17)
[2023-04-06 23:14] LABS: HEMATOCRIT 25.5 % (42.0-54.0)
[2023-04-06 23:26] LABS: HEMOGLOBIN 8.3 g/dL (13.5-18.0)
--- NOTE | 2023-04-07 01:10 | RAD ---
HISTORYpneumonia, ascites Relevant Clinical InformationSTUDYACUTE ABDOMEN SERIESCOMPARISONNoneFINDINGSThe trachea is midline. The cardiac silhouette is [mildly enlarged. Changes of prior CABG surgery.]. [The lungs are clear without focal mass or consolidation. Is small bilateral pleural effusions. No pneumothorax..] [The bony thorax is unremarkable].Flat plate and upright evaluation of the abdomen demonstrates a [normal bowel gas pattern]. There is a moderate amount of fecal material throughout the colon. There is no pneumoperitoneum. No pathological soft tissue mass or calcification can be observed. The bony structures are grossly intact.IMPRESSION1. [Mild cardiomegaly with small bilateral pleural]2. [No evidence for acute abdominal pathology identified.]Electronically signed by: Forrest Aguero (Apr 07, 2023 01:09:03)
[2023-04-07] MEDS: DUONEB 0.5 MG/3 MG (3 mL) NEB SCH ×3 (05:50→21:15)
[2023-04-07 06:41] LABS: BASOPHILS % (AUTO) 0.4 % (0.2-1.0); EOSINOPHILS # (AUTO) 0.1 x10^3/uL (0.0-0.2); EOSINOPHILS % (AUTO) 1.7 % (0.9-2.9); HEMATOCRIT 26.3 % (42.0-54.0); HEMOGLOBIN 8.6 g/dL (13.5-18.0); LYMPHOCYTES # (AUTO) 0.6 X10^3/uL (1.3-2.9); LYMPHOCYTES % (AUTO) 18.1 % (21.0-51.0); MEAN CORPUSCULAR HEMOGLOBIN 25.3 pg (27.0-34.0); MEAN CORPUSCULAR HGB CONC 32.8 g/dL (33.0-35.0); MEAN CORPUSCULAR VOLUME 77.3 fL (80.0-100.0); MEAN PLATELET VOLUME 7.5 fL (7.4-11.0); MONOCYTES # (AUTO) 0.3 x10^3/uL (0.3-0.8); MONOCYTES % (AUTO) 11.3 % (0.0-13.0); NEUTROPHILS # (AUTO) 2.1 x10^3/uL (2.2-4.8); NEUTROPHILS % (AUTO) 68.5 % (42.0-75.0); PLATELET COUNT 65 X10^3/uL (150.0-450.0); RED BLOOD COUNT 3.41 X10^6/uL (4.7-6.0)
[2023-04-07 06:47] LABS: AMMONIA 55 umol/L (11-32)
[2023-04-07 06:54] LABS: ALANINE AMINOTRANSFERASE 10 Units/L (12-78); ALBUMIN 2.1 g/dL (3.4-5.0); ALKALINE PHOSPHATASE 102 Units/L (46-116); ASPARTATE AMINO TRANSFERASE 15 Units/L (15-37); BLOOD UREA NITROGEN 17 mg/dL (7-18); CALCIUM 7.6 mg/dL (8.5-10.1); CARBON DIOXIDE 27.7 mmol/L (21-32); CHLORIDE 104 mmol/L (98-107); COR CA(FOR HYPOALB) 9.1 mg/dL (8.5-10.1); CREATININE 1.06 mg/dL (0.70-1.30); GLUCOSE 91 mg/dL (65-99); POTASSIUM 3.3 mmol/L (3.5-5.1); SODIUM 140 mmol/L (136-145); TOTAL PROTEIN 5.1 g/dL (6.4-8.2); eGFR NON BLACK RACES > 60 (>60)
[2023-04-07] MEDS ORDERED: CONSULT PHARMACY - POTASSIUM & MAGNESIUM XX SCH (08:00)
[2023-04-07 08:58] LABS: ANISOCYTOSIS 1+; BURR CELLS SLIGHT; HYPOCHROMASIA SLIGHT; MICROCYTOSIS SLIGHT; OVALOCYTES SLIGHT; PLATELET MORPHOLOGY COMMENT NORMAL (NORMAL); TEAR DROP CELLS SLIGHT
[2023-04-07] MEDS: K-DUR TAB 20 MEQ PO SCH ×2 (09:00→11:00)
[2023-04-07] MEDS: PriLOSEC PO SCH (10:00)
[2023-04-07] MEDS: LASIX IVP SCH ×2 (10:00→16:48)
[2023-04-07] MEDS: FLOMAX PO SCH (10:00)
[2023-04-07] MEDS: VITAMIN B-12 PO SCH (10:00)
[2023-04-07] MEDS: LEVAQUIN PREMIX IV 500 MG 500 MG/100 ML BAG IV SCH (10:00)
[2023-04-07] MEDS: ASPIRIN EC 81 MG PO SCH (10:01)
[2023-04-07] MEDS: ALBUMIN HUMAN 25%- 100 ML 100 ML IV SCH (13:01)
[2023-04-07] MEDS: ALDACTONE TAB 25 MG PO SCH (13:01)
[2023-04-07] MEDS: NS 1,000 ML IV 1,000 ML with MAGNESIUM SULFATE 50% INJ VIAL 1 G IV SCH ×2 (13:02)
--- NOTE | 2023-04-07 13:43 | PCM.PROG ---
Progress Note - Progress Note for Day of Date of Exam: 04/07/23 - Subjective Subjective: IS CURRENTLY BEING TREATED FOR LEFT LOWER LOBE PNEUMONIA, ANEMIA, TENSE ASCITES, LIVER CIRRHOSIS, HYPOKALEMIA, HYPOMAGNESEMIA, AND GENERALIZED WEAKNESS. HE IS CURRENTLY INPATIENT STATUS. HE HAS RECEIVED TWO UNITS OF PACKED RED BLOOD CELLS SINCE ADMISSION. HE HAS A PMH INCLUDES: CAD, DYSLIPIDEMIA, GERD, HTN, [place], CIRRHOSIS, BOWEL RESECTION, CABG. PERFORMED A PARACENTESIS YESTERDAY AND WAS ABLE TO DRAIN OVER 4 LITERS OF FLUID FROM THE ABDOMEN. TODAY, PATIENT IS ALERT AND ORIENTED, LYING IN BED ON MORNING ROUNDS. HE CONTINUES TO COMPLAIN OF GENERALIZED WEAKNESS, BUT REPORTS IMPROVEMENT SINCE THE PARACENTESIS. HE REPORTS THAT HE IS ABLE TO BREATH MUCH EASIER. HE HAD AN UNEVENTFUL NIGHT. ON EXAMINATION, HEART IS REGULAR IN RATE AND RHYTHM. BILATERAL LUNGS ARE NOTED WITH DIMINISHED LUNG SOUNDS THROUGHOUT. ABDOMEN IS SEVERELY DISTENDED. HYPOACTIVE BOWEL SOUNDS ARE NOTED IN ALL QUADRANTS. BILATERAL LOWER EXTREMITIES ARE NOTED WITH 2+ PITTING EDEMA. GOOD RANGE OF MOTION NOTED. HIS VITALS THIS MORNING WERE: 97.7-93-20-95%-131/60. LABS WERE OBTAINED. WBC 3.0, RBC 3.41, HGB 8.6, HCT 26.3, PLT COUNT 65, SODIUM 140, POTASSIUM 3.3, CHLORIDE 104, BUN 17, CREATININE 1.06, GLUCOSE 91, CALCIUM 7.6, MAGNESIUM 1.9, TOTAL BILI 3.20, AST 15, ALT 10, ALK PHOS 102, AMMONIA 55, TOTAL PROTEIN 5.1, ALBUMIN 2.1. HE IS CURRENTLY RECEIVING NORMAL SALINE WITH POTASSIUM AND MAGNESIUM AT 80 ML/HR, LEVAQUIN 500MG IV DAILY, ALBUMIN 25% IV DAILY, DUONEBS TID, LASIX 40MG IV BID, ZOFRAN 4MG IV Q6H PRN, TYLENOL 650MG PO Q6H PRN. HIS HOME MEDICATIONS OF ECOTRIN, ATORVASTATIN, VITAMIN B12, METOPROLOL, LISINOPRIL, TAMSULOSIN, ALDACTONE, OMEPRAZOLE WERE RESUMED. WE WILL CONTINUE WITH CURRENT PLAN OF CARE TODAY. OTHERWISE, WE PLAN TO FOLLOW UP WITH AM LABS AND CONTINUE TO MONITOR. TIME SPENT ON CLINICAL ASSESSMENT, REVIEWING LABS AND IMAGING, DECISION MAKING, AND DOCUMENTATION GREATER THAN 45 MINUTES. - Past Medical Family Social History Past Med/Fam/Surg Hx: No changes since H&P Allergies: Allergies No Known Drug Allergies Allergy (Verified 10/19/22 09:11) - Review of Systems ROS: No change since H&P - Vital Signs and I&O's Vital Signs: Vital Signs Temperature 97.7 F Pulse Rate [Bilateral Radial] 93 Pulse Rate 77 Respiratory Rate 20 Blood Pressure [Right Arm] 131/60 O2 Sat by Pulse Oximetry 95 O2 Sat by Pulse Oximetry 93 Intake and Output: Intake & Output 04/05/23 04/06/23 04/07/23 04/08/23 11:59 11:59 11:59 11:59 Intake Total 1693 / 1693 3994 / 3994 2325 / 2325 Output Total 1275 / 1275 1700 / 1700 6350 / 6350 Balance 418 / 418 2294 / 2294 -4025 / -4025 - Physical Exam Oriented: Normal Eyes: Normal Ear: Normal Nose: Normal Throat: Normal Respiratory: Generalized, Diminished Cardiovascular: Edema (BLE 2+ PITTING EDEMA ) : Normal Auscultation: Bowel Sounds: Normal Palpation: Normal Tenderness: Diffuse, Mild Skin: Normal Musculoskeletal: Normal Psychiatric: Normal Mood Description: Calm Affect: Normal Speech Pattern: Clear, Appropriate - Laboratory and Diagnostics Result Diagrams: 04/07/23 05:20 04/07/23 05:20 Labs: Laboratory WBC 3.0 X10^3/uL (3.6-10.0) L 04/07/23 05:20 RBC 3.41 X10^6/uL (4.7-6.0) L 04/07/23 05:20 Hgb 8.6 g/dL (13.5-18.0) L 04/07/23 05:20 Hct 26.3 % (42.0-54.0) L 04/07/23 05:20 MCV 77.3 fL (80.0-100.0) L 04/07/23 05:20 MCH 25.3 pg (27.0-34.0) L 04/07/23 05:20 MCHC 32.8 g/dL (33.0-35.0) L 04/07/23 05:20 RDW 21.0 % (11.6-16.5) H 04/07/23 05:20 Plt Count 65 X10^3/uL (150.0-450.0) L 04/07/23 05:20 Plt Count Comment Decreased (ADEQUATE) 04/07/23 05:20 MPV 7.5 fL (7.4-11.0) 04/07/23 05:20 Neut % (Auto) 68.5 % (42.0-75.0) 04/07/23 05:20 Lymph % (Auto) 18.1 % (21.0-51.0) L 04/07/23 05:20 [place] % (Auto) 11.3 % (0.0-13.0) 04/07/23 05:20 Eos % (Auto) 1.7 % (0.9-2.9) 04/07/23 05:20 Baso % (Auto) 0.4 % (0.2-1.0) 04/07/23 05:20 Neut # (Auto) 2.1 x10^3/uL (2.2-4.8) L 04/07/23 05:20 Lymph # (Auto) 0.6 X10^3/uL (1.3-2.9) L 04/07/23 05:20 [place] # (Auto) 0.3 x10^3/uL (0.3-0.8) 04/07/23 05:20 Eos # (Auto) 0.1 x10^3/uL (0.0-0.2) 04/07/23 05:20 Baso # (Auto) 0.0 X10^3/uL (0.0-0.1) 04/07/23 05:20 Absolute Nucleated RBC 0.1 /100WBC 04/07/23 05:20 Plt Morphology Comment Normal (NORMAL) 04/07/23 05:20 RBC Morphology Abnormal (NORMAL) 04/07/23 05:20 Hypochromasia Slight A 04/07/23 05:20 Poikilocytosis 1+ A 04/06/23 08:20 Anisocytosis 1+ A 04/07/23 05:20 Microcytosis Slight A 04/07/23 05:20 Tear Drop Cells Slight 04/07/23 05:20 Ovalocytes Slight A 04/07/23 05:20 [place] Cells Slight A 04/07/23 05:20 Sodium 140 mmol/L (136-145) 04/07/23 05:20 Corrected Sodium TNP 10/07/23 05:20 Potassium 3.3 mmol/L (3.5-5.1) L 04/07/23 05:20 Chloride 104 mmol/L (98-107) 04/07/23 05:20 Carbon Dioxide 27.7 mmol/L (21-32) 04/07/23 05:20 BUN 17 mg/dL (7-18) 04/07/23 05:20 Creatinine 1.06 mg/dL (0.70-1.30) 04/07/23 05:20 Est GFR (MDRD) Af Amer > 60 (>60) 04/07/23 05:20 Est GFR (MDRD) Non-Af > 60 (>60) 04/07/23 05:20 Glucose 91 mg/dL (65-99) 04/07/23 05:20 POC Glucose (mg/dL) 133 mg/dL (65-99) H 04/07/23 11:26 Calcium 7.6 mg/dL (8.5-10.1) L 04/07/23 05:20 Corrected Calcium 9.1 mg/dL (8.5-10.1) 04/07/23 05:20 Magnesium 1.9 mg/dL (2.0-2.9) L 04/07/23 05:20 Total Bilirubin 3.20 mg/dL (0.2-1.0) H 04/07/23 05:20 AST 15 Units/L (15-37) 04/07/23 05:20 ALT 10 Units/L (12-78) L 04/07/23 05:20 Alkaline Phosphatase 102 Units/L (46-116) 04/07/23 05:20 Ammonia 55 umol/L (11-32) H 04/07/23 05:20 Troponin I High Sens 20.7 ng/L (4.0-60.0) 04/04/23 13:12 B-Natriuretic Peptide 257 pg/mL (0-79) H 04/04/23 13:12 Total Protein 5.1 g/dL (6.4-8.2) L 04/07/23 05:20 Albumin 2.1 g/dL (3.4-5.0) L 04/07/23 05:20 Globulin 3.0 g/dL (2.5-4.5) 04/07/23 05:20 Albumin/Globulin Ratio 0.7 Ratio (1.1-2.1) L 04/07/23 05:20 Resp Viral Panel (PCR) See scanned report 04/05/23 14:21 Blood Type O POSITIVE 04/06/23 10:10 Antibody Screen Negative 04/06/23 10:10 Crossmatch See Detail 04/06/23 10:10 - Plan (1) Pneumonia Status: Acute Qualifiers: Pneumonia type: due to unspecified organism Laterality: left Lung location: lower lobe of lung Qualified Code(s): J18.9 - Pneumonia, unspecified organism Plan: NORMAL SALINE WITH POTASSIUM AND MAGNESIUM AT 80 ML/HR, LEVAQUIN 500MG IV DAILY, DUONEBS TID, LASIX 40MG IV BID, ZOFRAN 4MG IV Q6H PRN, TYLENOL 650MG PO Q6H PRN. RESUME HOME MEDS (2) Anemia Status: Acute Qualifiers: Anemia type: unspecified type Qualified Code(s): D64.9 - Anemia, unspecified Plan: MONITOR H&H (3) Tense ascites Status: Acute (4) Liver cirrhosis Status: Acute Qualifiers: Hepatic cirrhosis type: unspecified hepatic cirrhosis Ascites presence: with ascites Qualified Code(s): K74.60 - Unspecified cirrhosis of liver; R18.8 - Other ascites Plan: RESUME ALDACTONE (5) Hypokalemia Status: Acute Plan: POTASSIUM REPLACEMENT (6) Hypomagnesemia Status: Acute Plan: MAG REPLACEMENT (7) Generalized weakness Status: Acute (8) GERD (gastroesophageal reflux disease) Status: Chronic Qualifiers: Esophagitis presence: esophagitis presence not specified Qualified Code(s): K21.9 - Gastro-esophageal reflux disease without esophagitis Plan: RESUME OMEPRAZOLE (9) CAD (coronary artery disease) Status: Chronic Qualifiers: Coronary Disease-Associated Artery/Lesion type: bypass graft [place] vs. transplanted heart: [place] heart Associated angina: unspecified whether angina present Qualified Code(s): I25.810 - Atherosclerosis of coronary artery bypass graft(s) without angina pectoris Plan: RESUME ECOTRIN (10) Hypertension Status: Chronic Qualifiers: Hypertension type: primary hypertension Qualified Code(s): I10 - Essential (primary) hypertension Plan: RESUME METOPROLOL AND LISINOPRIL (11) Hyperlipidemia Status: Chronic Qualifiers: Hyperlipidemia type: mixed hyperlipidemia Qualified Code(s): E78.2 - Mixed hyperlipidemia Plan: RESUME ATORVASTATIN
[2023-04-07 17:36] LABS: HEMATOCRIT 27.9 % (42.0-54.0); HEMOGLOBIN 8.8 g/dL (13.5-18.0)
[2023-04-07] MEDS: MILK OF MAGNESIA PO SCH (20:42)
[2023-04-07] MEDS: LIPITOR TAB 10 MG PO SCH (20:42)
[2023-04-07] MEDS: COLACE CAP 100 MG PO SCH (20:42)
[2023-04-07 23:19] LABS: HEMATOCRIT 24.7 % (42.0-54.0)
[2023-04-08] MEDS: NS 1,000 ML IV 1,000 ML with MAGNESIUM SULFATE 50% INJ VIAL 1 G IV SCH ×6 (00:30→16:10)
[2023-04-08 05:19] LABS: BASOPHILS % (AUTO) 0.6 % (0.2-1.0); EOSINOPHILS # (AUTO) 0.1 x10^3/uL (0.0-0.2); HEMATOCRIT 23.4 % (42.0-54.0); HEMOGLOBIN 7.7 g/dL (13.5-18.0); LYMPHOCYTES # (AUTO) 0.4 X10^3/uL (1.3-2.9); LYMPHOCYTES % (AUTO) 14.7 % (21.0-51.0); MEAN CORPUSCULAR HGB CONC 32.8 g/dL (33.0-35.0); MEAN CORPUSCULAR VOLUME 76.4 fL (80.0-100.0); MEAN PLATELET VOLUME 7.2 fL (7.4-11.0); MONOCYTES # (AUTO) 0.4 x10^3/uL (0.3-0.8); MONOCYTES % (AUTO) 13.3 % (0.0-13.0); NEUTROPHILS # (AUTO) 1.9 x10^3/uL (2.2-4.8); NEUTROPHILS % (AUTO) 68.4 % (42.0-75.0); PLATELET COUNT 53 X10^3/uL (150.0-450.0); RED BLOOD COUNT 3.06 X10^6/uL (4.7-6.0); RED CELL DISTRIBUTION WIDTH 21.8 % (11.6-16.5); WHITE BLOOD COUNT 2.7 X10^3/uL (3.6-10.0)
[2023-04-08 05:22] LABS: AMMONIA 57 umol/L (11-32)
[2023-04-08 05:33] LABS: ALANINE AMINOTRANSFERASE 9 Units/L (12-78); ALBUMIN 2.3 g/dL (3.4-5.0); ALKALINE PHOSPHATASE 88 Units/L (46-116); ASPARTATE AMINO TRANSFERASE 15 Units/L (15-37); BLOOD UREA NITROGEN 11 mg/dL (7-18); CALCIUM 7.4 mg/dL (8.5-10.1); CARBON DIOXIDE 28.4 mmol/L (21-32); CHLORIDE 104 mmol/L (98-107); COR CA(FOR HYPOALB) 8.8 mg/dL (8.5-10.1); COR NA(FOR HYPERGLY) 137 mmol/L (136-145); GLUCOSE 130 mg/dL (65-99); POTASSIUM 3.2 mmol/L (3.5-5.1); SODIUM 136 mmol/L (136-145); eGFR NON BLACK RACES > 60 (>60)
[2023-04-08] MEDS: DUONEB 0.5 MG/3 MG (3 mL) NEB SCH ×3 (05:40→20:40)
[2023-04-08 05:50] LABS: ANISOCYTOSIS 1+; HYPOCHROMASIA SLIGHT; MICROCYTOSIS SLIGHT; PLATELET MORPHOLOGY COMMENT NORMAL (NORMAL)
[2023-04-08 05:51] LABS: BURR CELLS PRESENT; OVALOCYTES PRESENT
[2023-04-08] MEDS ORDERED: CONSULT PHARMACY - POTASSIUM & MAGNESIUM XX SCH (06:00)
[2023-04-08] MEDS: ALBUMIN HUMAN 25%- 100 ML 100 ML IV SCH (08:57)
[2023-04-08] MEDS: LEVAQUIN PREMIX IV 500 MG 500 MG/100 ML BAG IV SCH (08:58)
[2023-04-08] MEDS: PriLOSEC PO SCH (08:58)
[2023-04-08] MEDS: ALDACTONE TAB 25 MG PO SCH (08:58)
[2023-04-08] MEDS: LASIX IVP SCH ×2 (08:58→17:12)
[2023-04-08] MEDS: MAG-OX TAB PO SCH ×2 (08:58→11:49)
[2023-04-08] MEDS: ASPIRIN EC 81 MG PO SCH (08:59)
[2023-04-08] MEDS: K-DUR TAB 20 MEQ PO SCH ×2 (08:59→11:49)
[2023-04-08] MEDS: FLOMAX PO SCH (09:00)
[2023-04-08] MEDS: VITAMIN B-12 PO SCH (09:00)
--- NOTE | 2023-04-08 19:27 | PCM.PROG ---
Progress Note - Progress Note for Day of Date of Exam: 04/08/23 - Subjective Subjective: IS CURRENTLY BEING TREATED FOR LEFT LOWER LOBE PNEUMONIA, ANEMIA, TENSE ASCITES, LIVER CIRRHOSIS, HYPOKALEMIA, HYPOMAGNESEMIA, AND GENERALIZED WEAKNESS. HE IS CURRENTLY INPATIENT STATUS. HE HAS RECEIVED TWO UNITS OF PACKED RED BLOOD CELLS SINCE ADMISSION. HE HAS A PMH INCLUDES: CAD, DYSLIPIDEMIA, GERD, HTN, OK, CIRRHOSIS, BOWEL RESECTION, CABG. PERFORMED A PARACENTESIS SUNDAY AND WAS ABLE TO DRAIN OVER 4 LITERS OF FLUID FROM THE ABDOMEN. TODAY, PATIENT IS ALERT AND ORIENTED, LYING IN BED ON MORNING ROUNDS. HE CONTINUES TO COMPLAIN OF GENERALIZED WEAKNESS, BUT REPORTS IMPROVEMENT SINCE THE PARACENTESIS. HE REPORTS THAT HE IS ABLE TO BREATH MUCH EASIER. HE HAD AN UNEVENTFUL NIGHT. ON EXAMINATION, HEART IS REGULAR IN RATE AND RHYTHM. BILATERAL LUNGS ARE NOTED WITH DIMINISHED LUNG SOUNDS THROUGHOUT. ABDOMEN IS SEVERELY DISTENDED. HYPOACTIVE BOWEL SOUNDS ARE NOTED IN ALL QUADRANTS. BILATERAL LOWER EXTREMITIES ARE NOTED WITH 1+ PITTING EDEMA. GOOD RANGE OF MOTION NOTED. HIS VITALS THIS MORNING WERE: 98.4-92-20-94%-148/67. LABS WERE OBTAINED. WBC 2.7, RBC 3.06, HGB 7.7, HCT 23.4, PLT COUNT 53, SODIUM 136, POTASSIUM 3.2, CHLORIDE 104, BUN 11, CREATININE 0.80, GLUCOSE 130, CALCIUM 7.4, MAGNESIUM 1.9, TOTAL BILI 0.20, AST 15, ALT 9, ALK PHOS 88, AMMONIA 57, TOTAL PROTEIN 5.0, ALBUMIN 2.3. HE IS CURRENTLY RECEIVING NORMAL SALINE WITH POTASSIUM AND MAGNESIUM AT 80 ML/HR, LEVAQUIN 500MG IV DAILY, ALBUMIN 25% IV DAILY, DUONEBS TID, LASIX 40MG IV BID, ZOFRAN 4MG IV Q6H PRN, TYLENOL 650MG PO Q6H PRN. HIS HOME MEDICATIONS OF ECOTRIN, ATORVASTATIN, VITAMIN B12, METOPROLOL, LISINOPRIL, TAMSULOSIN, ALDACTONE, OMEPRAZOLE WERE RESUMED. WE WILL CONTINUE WITH CURRENT PLAN OF CARE TODAY. OTHERWISE, WE PLAN TO FOLLOW UP WITH AM LABS AND CONTINUE TO MONITOR. TIME SPENT ON CLINICAL ASSESSMENT, REVIEWING LABS AND IMAGING, DECISION MAKING, AND DOCUMENTATION GREATER THAN 45 MINUTES. - Past Medical Family Social History Past Med/Fam/Surg Hx: No changes since H&P Allergies: Allergies No Known Drug Allergies Allergy (Verified 10/19/22 09:11) - Review of Systems ROS: No change since H&P - Vital Signs and I&O's Vital Signs: Vital Signs Temperature 98.3 F Temperature 97.8 F Pulse Rate [Left Brachial] 98 Pulse Rate [Left Brachial] 91 Respiratory Rate 20 Respiratory Rate 22 Blood Pressure [Left Arm] 121/64 Blood Pressure [Left Arm] 142/63 O2 Sat by Pulse Oximetry 96 O2 Sat by Pulse Oximetry 98 Intake and Output: Intake & Output 04/06/23 04/07/23 04/08/23 04/09/23 11:59 11:59 11:59 11:59 Intake Total 3994 / 3994 2325 / 2325 4063 / 4063 1414 / 1414 Output Total 1700 / 1700 6350 / 6350 1350 / 1350 625 / 625 Balance 2294 / 2294 -4025 / -4025 2713 / 2713 789 / 789 - Physical Exam Oriented: Normal Eyes: Normal Ear: Normal Nose: Normal Throat: Normal Respiratory: Generalized, Diminished Cardiovascular: Edema (BLE 2+ PITTING EDEMA ) : Normal Auscultation: Bowel Sounds: Normal Tenderness: Diffuse, Mild Skin: Normal Musculoskeletal: Normal Psychiatric: Normal Mood Description: Calm Affect: Normal Speech Pattern: Clear, Appropriate - Laboratory and Diagnostics Result Diagrams: 04/08/23 04:55 04/08/23 04:55 Labs: Laboratory WBC 2.7 X10^3/uL (3.6-10.0) L 04/08/23 04:55 RBC 3.06 X10^6/uL (4.7-6.0) L 04/08/23 04:55 Hgb 7.7 g/dL (13.5-18.0) L 04/08/23 04:55 Hct 23.4 % (42.0-54.0) L 04/08/23 04:55 MCV 76.4 fL (80.0-100.0) L 04/08/23 04:55 MCH 25.0 pg (27.0-34.0) L 04/08/23 04:55 MCHC 32.8 g/dL (33.0-35.0) L 04/08/23 04:55 RDW 21.8 % (11.6-16.5) H 04/08/23 04:55 Plt Count 53 X10^3/uL (150.0-450.0) L 04/08/23 04:55 Plt Count Comment Decreased (ADEQUATE) 04/08/23 04:55 MPV 7.2 fL (7.4-11.0) L 04/08/23 04:55 Neut % (Auto) 68.4 % (42.0-75.0) 04/08/23 04:55 Lymph % (Auto) 14.7 % (21.0-51.0) L 04/08/23 04:55 [place] % (Auto) 13.3 % (0.0-13.0) H 04/08/23 04:55 Eos % (Auto) 3.0 % (0.9-2.9) H 04/08/23 04:55 Baso % (Auto) 0.6 % (0.2-1.0) 04/08/23 04:55 Neut # (Auto) 1.9 x10^3/uL (2.2-4.8) L 04/08/23 04:55 Lymph # (Auto) 0.4 X10^3/uL (1.3-2.9) L 04/08/23 04:55 [place] # (Auto) 0.4 x10^3/uL (0.3-0.8) 04/08/23 04:55 Eos # (Auto) 0.1 x10^3/uL (0.0-0.2) 04/08/23 04:55 Baso # (Auto) 0.0 X10^3/uL (0.0-0.1) 04/08/23 04:55 Absolute Nucleated RBC 0.1 /100WBC 04/08/23 04:55 Plt Morphology Comment Normal (NORMAL) 04/08/23 04:55 RBC Morphology Abnormal (NORMAL) 04/08/23 04:55 Hypochromasia Slight A 04/08/23 04:55 Poikilocytosis 1+ A 04/06/23 08:20 Anisocytosis 1+ A 04/08/23 04:55 Microcytosis Slight A 04/08/23 04:55 Tear Drop Cells Slight 04/07/23 05:20 Ovalocytes Present 04/08/23 04:55 Nolberto Cells Present 04/08/23 04:55 Sodium 136 mmol/L (136-145) 04/08/23 04:55 Corrected Sodium 137 mmol/L (136-145) 04/08/23 04:55 Potassium 3.2 mmol/L (3.5-5.1) L 04/08/23 04:55 Chloride 104 mmol/L (98-107) 04/08/23 04:55 Carbon Dioxide 28.4 mmol/L (21-32) 04/08/23 04:55 BUN 11 mg/dL (7-18) 04/08/23 04:55 Creatinine 0.80 mg/dL (0.70-1.30) 04/08/23 04:55 Est GFR (MDRD) Af Amer > 60 (>60) 04/08/23 04:55 Est GFR (MDRD) Non-Af > 60 (>60) 04/08/23 04:55 Glucose 130 mg/dL (65-99) H 04/08/23 04:55 POC Glucose (mg/dL) 112 mg/dL (65-99) H 04/08/23 16:20 Calcium 7.4 mg/dL (8.5-10.1) L 04/08/23 04:55 Corrected Calcium 8.8 mg/dL (8.5-10.1) 04/08/23 04:55 Magnesium 1.9 mg/dL (2.0-2.9) L 04/08/23 04:55 Total Bilirubin 2.20 mg/dL (0.2-1.0) H 04/08/23 04:55 AST 15 Units/L (15-37) 04/08/23 04:55 ALT 9 Units/L (12-78) L 04/08/23 04:55 Alkaline Phosphatase 88 Units/L (46-116) 04/08/23 04:55 Ammonia 57 umol/L (11-32) H 04/08/23 04:55 Troponin I High Sens 20.7 ng/L (4.0-60.0) 04/04/23 13:12 B-Natriuretic Peptide 257 pg/mL (0-79) H 04/04/23 13:12 Total Protein 5.0 g/dL (6.4-8.2) L 04/08/23 04:55 Albumin 2.3 g/dL (3.4-5.0) L 04/08/23 04:55 Globulin 2.7 g/dL (2.5-4.5) 04/08/23 04:55 Albumin/Globulin Ratio 0.9 Ratio (1.1-2.1) L 04/08/23 04:55 Resp Viral Panel (PCR) See scanned report 04/05/23 14:21 Blood Type O POSITIVE 04/06/23 10:10 Antibody Screen Negative 04/06/23 10:10 Crossmatch See Detail 04/06/23 10:10 - Plan (1) Pneumonia Status: Acute Qualifiers: Pneumonia type: due to unspecified organism Laterality: left Lung location: lower lobe of lung Qualified Code(s): J18.9 - Pneumonia, unspecified organism Plan: NORMAL SALINE WITH POTASSIUM AND MAGNESIUM AT 80 ML/HR, LEVAQUIN 500MG IV DAILY, DUONEBS TID, LASIX 40MG IV BID, ZOFRAN 4MG IV Q6H PRN, TYLENOL 650MG PO Q6H PRN. RESUME HOME MEDS (2) Anemia Status: Acute Qualifiers: Anemia type: unspecified type Qualified Code(s): D64.9 - Anemia, unspecified Plan: MONITOR H&H (3) Tense ascites Status: Acute Plan: CONSULT GENERAL SURGERY FOR POSSIBLE PARACENTESIS (4) Liver cirrhosis Status: Acute Qualifiers: Hepatic cirrhosis type: unspecified hepatic cirrhosis Ascites presence: with ascites Qualified Code(s): K74.60 - Unspecified cirrhosis of liver; R18.8 - Other ascites Plan: RESUME ALDACTONE (5) Hypokalemia Status: Acute Plan: POTASSIUM REPLACEMENT (6) Hypomagnesemia Status: Acute Plan: MAG REPLACEMENT (7) Generalized weakness Status: Acute (8) GERD (gastroesophageal reflux disease) Status: Chronic Qualifiers: Esophagitis presence: esophagitis presence not specified Qualified Code(s): K21.9 - Gastro-esophageal reflux disease without esophagitis Plan: RESUME OMEPRAZOLE (9) CAD (coronary artery disease) Status: Chronic Qualifiers: Coronary Disease-Associated Artery/Lesion type: bypass graft [place] vs. transplanted heart: [place] heart Associated angina: unspecified whether angina present Qualified Code(s): I25.810 - Atherosclerosis of coronary artery bypass graft(s) without angina pectoris Plan: RESUME ECOTRIN (10) Hypertension Status: Chronic Qualifiers: Hypertension type: primary hypertension Qualified Code(s): I10 - Essential (primary) hypertension Plan: RESUME METOPROLOL AND LISINOPRIL (11) Hyperlipidemia Status: Chronic Qualifiers: Hyperlipidemia type: mixed hyperlipidemia Qualified Code(s): E78.2 - Mixed hyperlipidemia Plan: RESUME ATORVASTATIN
[2023-04-08] MEDS: LIPITOR TAB 10 MG PO SCH (20:31)
[2023-04-08] MEDS: MILK OF MAGNESIA PO SCH (20:31)
[2023-04-08] MEDS: COLACE CAP 100 MG PO SCH (20:31)
[2023-04-09] MEDS: NS 1,000 ML IV 1,000 ML with MAGNESIUM SULFATE 50% INJ VIAL 1 G IV SCH ×2 (05:36)
[2023-04-09 05:56] LABS: BASOPHILS % (AUTO) 0.6 % (0.2-1.0); EOSINOPHILS # (AUTO) 0.1 x10^3/uL (0.0-0.2); EOSINOPHILS % (AUTO) 2.1 % (0.9-2.9); HEMATOCRIT 24.1 % (42.0-54.0); HEMOGLOBIN 7.9 g/dL (13.5-18.0); LYMPHOCYTES # (AUTO) 0.4 X10^3/uL (1.3-2.9); LYMPHOCYTES % (AUTO) 12.5 % (21.0-51.0); MEAN CORPUSCULAR HEMOGLOBIN 25.1 pg (27.0-34.0); MEAN CORPUSCULAR HGB CONC 32.7 g/dL (33.0-35.0); MEAN CORPUSCULAR VOLUME 76.9 fL (80.0-100.0); MEAN PLATELET VOLUME 7.3 fL (7.4-11.0); MONOCYTES # (AUTO) 0.4 x10^3/uL (0.3-0.8); MONOCYTES % (AUTO) 12.6 % (0.0-13.0); NEUTROPHILS # (AUTO) 2.2 x10^3/uL (2.2-4.8); NEUTROPHILS % (AUTO) 72.2 % (42.0-75.0); PLATELET COUNT 52 X10^3/uL (150.0-450.0); RED BLOOD COUNT 3.14 X10^6/uL (4.7-6.0); RED CELL DISTRIBUTION WIDTH 21.6 % (11.6-16.5)
[2023-04-09 06:00] LABS: AMMONIA 76 umol/L (11-32)
[2023-04-09 06:09] LABS: ALANINE AMINOTRANSFERASE 9 Units/L (12-78); ALBUMIN 2.5 g/dL (3.4-5.0); ALKALINE PHOSPHATASE 87 Units/L (46-116); ASPARTATE AMINO TRANSFERASE 14 Units/L (15-37); BLOOD UREA NITROGEN 9 mg/dL (7-18); CALCIUM 7.7 mg/dL (8.5-10.1); CARBON DIOXIDE 27.8 mmol/L (21-32); CHLORIDE 104 mmol/L (98-107); COR CA(FOR HYPOALB) 8.9 mg/dL (8.5-10.1); COR NA(FOR HYPERGLY) 138 mmol/L (136-145); CREATININE 0.76 mg/dL (0.70-1.30); GLUCOSE 121 mg/dL (65-99); MAGNESIUM 2.1 mg/dL (2.0-2.9); POTASSIUM 3.5 mmol/L (3.5-5.1); SODIUM 137 mmol/L (136-145); TOTAL PROTEIN 5.2 g/dL (6.4-8.2); eGFR NON BLACK RACES > 60 (>60)
[2023-04-09] MEDS: DUONEB 0.5 MG/3 MG (3 mL) NEB SCH (06:14)
[2023-04-09 06:25] LABS: ANISOCYTOSIS 1+; HYPOCHROMASIA SLIGHT; MICROCYTOSIS SLIGHT; OVALOCYTES SLIGHT; PLATELET MORPHOLOGY COMMENT NORMAL (NORMAL); POIKILOCYTOSIS SLIGHT
[2023-04-09 06:26] LABS: BURR CELLS SLIGHT
[2023-04-09] MEDS ORDERED: CONSULT PHARMACY - POTASSIUM & MAGNESIUM XX SCH (07:00)
[2023-04-09] MEDS ORDERED: K-DUR TAB 20 MEQ PO SCH (09:00)
[2023-04-09] MEDS: LASIX IVP SCH (09:41)
[2023-04-09] MEDS: ALDACTONE TAB 25 MG PO SCH (09:43)
[2023-04-09] MEDS: PriLOSEC PO SCH (09:44)
[2023-04-09] MEDS: FLOMAX PO SCH (09:45)
[2023-04-09] MEDS: VITAMIN B-12 PO SCH (09:46)
[2023-04-09] MEDS: ASPIRIN EC 81 MG PO SCH (09:47)
[2023-04-09] MEDS: ALBUMIN HUMAN 25%- 100 ML 100 ML IV SCH (09:49)
[2023-04-09 10:27] VITALS: O2SAT 97
[2023-04-09] MEDS: LEVAQUIN PREMIX IV 500 MG 500 MG/100 ML BAG IV SCH (11:30)
[2023-04-09 13:31] VITALS: BP 117/66; PULSE 101; RESP 20; TEMP 98.3
== END 2023-04-09 13:20 | disposition home or self-care (01) ==
LOC: ER 12:41 → MED/SURG 12:41
PROVIDERS: ADMIT Internal Medicine; ATTEND Internal Medicine
DX: R10.84 Generalized abdominal pain; Z53.9 Procedure and treatment not carried out, unspecified reason; J18.8 Other pneumonia, unspecified organism; J90 Pleural effusion, not elsewhere classified; Z85.038 Personal history of other malignant neoplasm of large intestine; R18.8 Other ascites; R06.02 Shortness of breath; D64.89 Other specified anemias; K74.69 Other cirrhosis of liver